=== PATIENT | female | born 1945 | race Caucasian/White ===

== ENCOUNTER 2016-09-09 20:08 | Inpatient (IN) ==
[2016-09-09] MEDS ORDERED: Ipratropium/Albuterol Neb 3 ML IH ONE ×2 (20:24→21:20)
[2016-09-09] MEDS ORDERED: methylPREDNISolone 125 MG/2 ML VIAL IVP ONE (20:24)
--- NOTE | 2016-09-09 20:28 | Emergency Department Note ---
Disposition Clinical Impression: Acute exacerbation of chronic obstructive airways disease, Community acquired pneumonia Disposition: Admitted As Inpatient Condition: Fair Referrals: NO,PCP [Non-Partnered Physician] - Forms: ED Satisfaction Letter Time of Disposition: 22:45 SOB HPI - General Chief Complaint: ED Shortness of Breath/Dyspnea Stated Complaint: sinus problems [facility] sent here for low o2 Time Seen by Provider: 09/09/16 20:17 Source: patient Limitations: no limitations Nursing Notes Reviewed: Yes Vital Signs Reviewed: Yes - History of Present Illness 71-year-old female presents emergency room for shortness of breath. Patient went to the [facility] for sinus congestion and postnasal drainage and a cough. They sent her to the ER for low oxygen saturation. She is complaining of shortness of breath and a cough as well as the above sinus symptoms for 4 days. Worse today. She does not wear home oxygen. She does have a history of COPD. She has not smoked any cigarettes in years. She denies any pain. Specifically she denies chest pain. They told her at [facility] that she had a fever. She does not have a fever here in triage. She denies any other complaints. Again she does not wear home oxygen but she does use and occasional albuterol inhaler. She does not have a nebulizer machine. Pt Subjective Complaint: shortness of breath, cough Onset (ago): day(s) Context: recent illness Severity: moderate Consistency/Duration: constant Improves with: nothing Worsens with: movement, coughing Known history of: COPD Associated symptoms: Reports: fever, cough, sputum production, other (Sinus congestion and rhinorrhea and postnasal drainage). Denies: chest pain Treatment prior to arrival: none Cough present: Yes Cough Description: Voluntary Cough Frequency: Intermittent Sputum production: No - Related Data Home Medications Medication Instructions Recorded Confirmed Albuterol Sulfate [Albuterol 2 puff IH Q4H PRN 09/09/16 09/09/16 Inhaler] Cholecalciferol (D-3) [Vitamin D] 2,000 unit PO DAILY 09/09/16 09/09/16 Colesevelam [Welchol] 1,875 mg PO BID 09/09/16 09/09/16 Fluticasone/Salmeterol [Advair Hfa 2 puff IH BID 09/09/16 09/09/16 230-21 Mcg Inhaler] Glimepiride [Amaryl] 4 mg PO BID 09/09/16 09/09/16 Lisinopril [Zestril] 20 mg PO DAILY 09/09/16 09/09/16 Metformin HCl [Glucophage] 1,000 mg PO BID 09/09/16 09/09/16 Nicotine Patch [Nicoderm] 21 mg TD DAILY 09/09/16 09/09/16 Allergies Allergy/AdvReac Type Severity Reaction Status Date / Time No Known Allergies Allergy Verified 11/17/15 10:14 All systems ED: reviewed and negative except as stated. Constitutional: Reports: fever, chills, weakness Eyes: Reports: as per HPI ENT ED: Reports: as per HPI Cardiovascular: Reports: as per HPI. Denies: chest pain Respiratory: Reports: cough, dyspnea, wheezes Gastrointestinal: Reports: as per HPI Genitourinary: Reports: as per HPI Musculoskeletal: Reports: as per HPI Integumentary: Reports: as per HPI Neurological: Reports: as per HPI Psychiatric: Reports: as per HPI Endocrine: Reports: as per HPI Past Medical History - Past Medical History Medical history: Reports: arthritis, COPD, diabetes, hyperlipidemia Surgical history: Reports: cholecystectomy, hysterectomy, orthopedic, other - Social History Smoking Status: Former smoker Alcohol use: Reports: none Drug use: Reports: none Physical Exam - General Limitations: no limitations General appearance: alert, in no apparent distress - Head Head exam: atraumatic, normocephalic - Eye Eye exam: Present: normal appearance - ENT ENT exam: normal exam, normal oropharynx - Neck Neck exam: Present: normal inspection - Respiratory Respiratory exam: Present: wheezes (Bilateral wheezes. Decreased air exchange in the bases.) - Cardiovascular Cardiovascular exam: Present: tachycardia - Abdominal Exam Abdominal exam: Present: soft, Non-Tender - Expanded Lower Extremity Exam Hip/Pelvis exam: Present: normal inspection Neurovascular/Tendon exam: Present: normal capillary refill - Back Exam Back exam: Present: normal inspection - Neurological Exam Neurological exam: Present: alert, oriented X3 - Psychiatric Psychiatric exam: Present: normal affect, normal mood - Skin Skin exam: Present: warm, dry, intact Course Vital Signs Temperature 98.2 F 09/09/16 20:11 Pulse Rate 115 09/09/16 20:11 Respiratory Rate 20 09/09/16 20:11 Blood Pressure 145/74 09/09/16 20:11 O2 Sat by Pulse Oximetry 75 L 09/09/16 20:11 Temperature 98.2 F 09/09/16 20:11 Pulse Rate 99 09/09/16 22:04 Respiratory Rate 20 09/09/16 22:04 Blood Pressure 125/49 09/09/16 22:04 O2 Sat by Pulse Oximetry 95 09/09/16 22:04 Oxygen Delivery Oxygen Delivery Nasal Cannula Shortness of Breath/Dyspnea - [facility] Narrative Medical decision making narrative: Concerns on the chest x-ray for some bibasilar infiltrates. The radiologist read this as a normal test. I added on a CT of the chest which showed some bilateral pneumonia appearance. No significant infiltrate however is seen. Her labs are unremarkable. Her troponin was negative. Spoke with the hospitalist will admit the patient. She is requiring oxygen which she does not wear any home. She is having a lot of coughing secondary to the breathing treatments. She was given Solu-Medrol 125 mg upon arrival to the ER. She is stable otherwise at this time. - Medical Records Medical records reviewed: Yes I reviewed the patient's medical records. - Lab Data Lab results reviewed: Yes I reviewed the patient's lab results. Result diagrams: 09/09/16 20:27 09/09/16 20:27 Lab Results 09/09/16 09/09/16 09/09/16 Range/Units 20:27 20:27 20:27 WBC 10.1 (4.3-11.1) K/mcL RBC 4.49 (3.82-4.97) M/mcL Hgb 13.4 (11.5-15.4) g/dL Hct 41.2 (35.3-44.9) % MCV 91.8 (83.0-100.0) fL MCH 29.8 (28.0-33.3) pg MCHC 32.5 (31.6-35.5) g/dL RDW 13.2 (11.5-14.5) % Plt Count 221 (140-400) K/mcL MPV 8.9 L (9.4-12.4) fL Immature Gran % 0.3 (0-4) % Seg Neutrophils % 79.8 % Lymphocytes % 9.9 % Monocytes % 9.8 % Eosinophils % 0.0 % Basophils % 0.2 % Neutrophils # 8.1 (1.6-8.9) K/mcL Lymphocytes # 1.0 (0.6-4.6) K/mcL Monocytes # 1.0 (0.0-1.3) K/mcL Eosinophils # 0.0 (0.0-0.6) K/mcL Basophils # 0.0 (0.0-0.2) K/mcL Sodium 138 (136-145) mEq/L Potassium 3.8 (3.5-4.5) mEq/L Chloride 100 (98-109) mEq/L Carbon Dioxide 23 (19-29) mEq/L BUN 16 (7-20) mg/dL Creatinine 0.87 (0.57-1.11) mg/dL Est GFR ( Amer) > 60 (> 60) Est GFR (Non-Af Amer) > 60 (> 60) BUN/Creatinine Ratio 18 (6-26) Glucose 141 H (70-99) mg/dL Calculated Osmolality 290 (280-300) Calcium 9.1 (8.6-10.8) mg/dL Troponin I 0.02 (0-0.03) ng/mL - Radiology Data Radiology results reviewed: Yes I reviewed the patient's radiology results. - EKG Data EKG attestation: Yes I reviewed and interpreted this EKG. EKG shows normal: Reports: sinus rhythm Rate: Reports: tachycardia Rhythm: Reports: NSR [place]/QRS: Reports: normal
[2016-09-09 20:39] LABS: Basophils % 0.2 %; Hematocrit 41.2 % (35.3-44.9); Hemoglobin 13.4 g/dL (11.5-15.4); Immature Granulocytes % 0.3 % (0-4); Lymphocytes % 9.9 %; Mean Corpuscular HGB Conc 32.5 g/dL (31.6-35.5); Mean Corpuscular Hemoglobin 29.8 pg (28.0-33.3); Mean Corpuscular Volume 91.8 fL (83.0-100.0); Mean Platelet Volume 8.9 fL (9.4-12.4); Monocytes % 9.8 %; Neutrophils # 8.1 K/mcL (1.6-8.9); Platelet Count 221 K/mcL (140-400); Red Blood Count 4.49 M/mcL (3.82-4.97); Red Cell Distribution Width 13.2 % (11.5-14.5); Segmented Neutrophils % 79.8 %
[2016-09-09 20:52] LABS: BUN/Creatinine Ratio 18 (6-26); Blood Urea Nitrogen 16 mg/dL (7-20); Calcium 9.1 mg/dL (8.6-10.8); Carbon Dioxide 23 mEq/L (19-29); Chloride 100 mEq/L (98-109); Glucose 141 mg/dL (70-99); Osmolality,Calculated 290 (280-300); Potassium 3.8 mEq/L (3.5-4.5); Sodium 138 mEq/L (136-145); eGFR For African Americans > 60 (> 60); eGFR For Non-African Americans > 60 (> 60)
[2016-09-09] MEDS ORDERED: HYDROcodone BIT/Homatropine LQ 5 MG/5 ML UDC PO PRN (21:20)
[2016-09-09] MEDS ORDERED: Azithromycin 500 MG in D5% in Water 250 ML IVPB ONE (22:43)
[2016-09-10] MEDS ORDERED: *HR* Morphine 2 MG/ML SYRINGE IVP PRN (00:08)
[2016-09-10] MEDS ORDERED: Dextrose Gel 15 GM PO PRN ×2 (00:08)
[2016-09-10] MEDS ORDERED: Acetaminophen 325 MG TABLET PO PRN (00:08)
[2016-09-10] MEDS ORDERED: *HR* OxyCODONE Immed Rel 5 MG TABLET PO PRN ×3 (00:08→16:01)
[2016-09-10] MEDS ORDERED: *HR* Dextrose 50 % in Water (Syg) 50 ML SYRINGE IVP PRN (00:08)
[2016-09-10] MEDS ORDERED: Pantoprazole 40 MG VIAL IVP STA (00:08)
[2016-09-10] MEDS ORDERED: Albuterol 2.5 MG/3 ML NEBULIZER IH PRN (00:08)
[2016-09-10] MEDS ORDERED: D5% in Water 1,000 ML IV PRN (00:08)
[2016-09-10] MEDS ORDERED: *HR* Promethazine 25 MG/ML VIAL IVP PRN (00:08)
[2016-09-10] MEDS ORDERED: Naloxone 0.4 MG/ML INJ IVP PRN (00:08)
--- NOTE | 2016-09-10 00:25 | Internal Med History&Physical ---
Date of Encounter: 09/10/16 Time of Encounter: 01:00 Assessment and Plan (1) Acute respiratory failure with hypoxia Current visit: Yes Status: Acute . (2) Type 2 diabetes mellitus Current visit: Yes Status: Chronic . Qualifiers: Diabetes mellitus complication status: with unspecified complications Diabetes mellitus nursing home insulin use: unspecified terminal makeup operator insulin use status Qualified Code(s): E11.8 - Type 2 diabetes mellitus with unspecified complications (3) COPD (chronic obstructive pulmonary disease) Current visit: Yes Status: Chronic . Qualifiers: COPD type: unspecified COPD Qualified Code(s): J44.9 - Chronic obstructive pulmonary disease, unspecified (4) Former heavy cigarette smoker (20-39 per day) Current visit: Yes Status: Chronic . (5) Acute exacerbation of chronic obstructive airways disease Current visit: Yes Status: Acute . (6) Community acquired pneumonia Current visit: Yes Status: Acute . (7) Sinusitis Current visit: Yes Status: Acute . Qualifiers: Sinusitis location: unspecified location Chronicity: unspecified Qualified Code(s): J32.9 - Chronic sinusitis, unspecified (8) SIRS due to infectious process with organ dysfunction Current visit: Yes Status: Acute . Internal Medicine - H&P: HPI Chief complaint: Difficulty breathing Admitted From: Emergency Dept Plans for Post Hospital Care: Home History of present illness: Ms. Faustin is a 71 year old female medical history significant for COPD/ interstitial lung disease, osteoarthritis, osteopenia, type 2 diabetes mellitus , hypertension, dyslipidemia, GERD, colonic polyps/angiodysplasia with assoc GI bleed, former smoker. The patient was visited and interviewed and examined. The patient is admitted to [facility] via the emergency department when she presented with complaints of acute shortness of breath. She recently went to the [facility] urgent care clinic. She was concerned about persistent sinus congestion with postnasal drainage and recurrent cough. Examination found her to be acutely hypoxic with O2 saturations found to be in the 70-80% range. She was promptly forwarded to the emergency department for more comprehensive evaluation. The patient was aware of a prior history for COPD. She had been prescribed a prn rescue metered-dose inhaler. A combined, maintanence inhaled steroid and bronchodilator. She recalls performing a pulmonary function test but the results of which she is unaware of. She was never directed to complete a sleep study about sleep apnea. Does not have an home oxygen therapy. She former heavy smoker she has not smoked in several years. For sending complaints and she acknowledges that they had been progressive over 4 to 7days. Symptoms were worse on the day of her presentation to the clinic. She shortness of breath to be moderate to severe with audible wheezing and dyspnea at rest but increased with activity. Nothing seemed to improve symptoms even her metered-dose inhalers when most severe. It would be aggravated with minimal activity and during coughing. She acknowledged a feeling of feverishness and some chills and generalized weakness and malaise and sputum production scant and mucoid. Denies any hemoptysis epistaxis. Feeling of sinus pressure and congestion is persistent with a feeling of postnasal drainage triggering cough and rhinorrhea. She denies any chest pain headache and syncopal presyncopal complaints as he vomiting abdominal pain. Cannot quantify any specific sick contacts. Denies any travel. Denies any significant environmental exposures of late beyond changes in local winter climate. Findings in the ED: temperature 98.2 pulse 99-115 respirations 18-20 BP 125-145/49-74 and O2 saturation by pulse oximetry 75-95% at 2-3 L per nasal cannula. WBC 10.1 hemoglobin 13.4 platelets 221,000. Differential normal. Metabolic panel normal. BUN 16 creatinine 0.87. Glucose 141 osmolality 290. Troponin 0.02. EKG normal sinus rhythm. Tachycardia. No acute ischemic changes. Portable chest x-ray demonstrated no acute or active cardiopulmonary process. Preliminary impression suggest acute exacerbation of mixed COPD disease bronchitis-bronchiolitis) against a background of chronic interstitial lung disease. Resting hypoxemia has been experiencing in her past although home oxygen therapy has not been established for her. Agree with hypoxemia was significant of oxygen but proved responsive to supplemental oxygen therapy. Screening laboratory studies meet systemic inflammatory response syndrome criteria. Investigations will be pursued as part of rule out for sepsis secondary to infectious cause. Most likely source sinobronchial. She declares that she is no longer actively smoking but this cannot be validated at this time. Given presenting findings she is at risk for further acute clinical decline and morbidity the setting of her defined comorbid conditions. Workup and reatments will proceed comprehensively. Cumulative laboratory and radiographic data base was reviewed, considered and discussed. Pertinent ancillary medical records including ECW and PCI documentation, when available, was reviewed and considered. Given the patient's presenting concerns, past medical history, clinical findings and symptoms, she is admitted at this time will undergo further evaluation and disposition. Orders were written as per the computerized physician border guard system.......................................................................... .................... Consultative opinions will be sought as clinical circumstances justify. Pain management needs will be addressed. Laboratory and radiographic data base will be updated as appropriate. Studies include: Cultures of blood urine and sputum, cardiac injury panel, BNP, metabolic and hematologic panel, magnesium, phosphorus, ionized calcium, thyroid panel, lipid profile, A1c, C-peptide, CRP, sedimentation rate, respiratory infection profile, respiratory virus panel, Legionella and streptococcal pneumoniae urine antigen, blood gas, lactic acid, UA, UDS, serologies, etc. Precautions: Aspiration, fall, delirium protocol/surveillance initiated. Telemetry with continuous hemodynamic monitoring and pulse oximetry initiated. Empiric antibiotic coverage: Intravenous Rocephin and azithromycin pending culture data. Special studies: CT chest, CT sinuses, chest x-ray, telemetry, EKG. Pulmonary toilet: Incentive spirometry, aerosol bronchodilator, mucolytic, antitussive, supplemental oxygen. Corticosteroid therapy. CPAP/BiPAP supplemental oxygen delivery. Aerosol Mucomyst therapy. Fluid and electrolyte repletion efforts will proceed. Careful attention to fluid balance and renal recovery will be emphasized. Avoidance of nephrotoxic exposure and adverse drug drug interaction in the setting of impaired renal function will be monitored closely. Acute coronary syndrome protocol/surveillance initiated. DVT and PUD prophylaxis initiated: PPI therapy, intermittent pneumatic cuffs/ TEDs. SQ heparin/Lovenox. Early ambulation will be encouraged. Immunization updates recommended. Influenza and pneumococcal vaccinations as part of ongoing preventative healthcare recommendations strongly recommended. Smoking cessation counseling briefly addressed. Patient is a former smoker. A nicotine substitute will be provided on an as requested basis. Advanced care directive discussion briefly addressed. Patient does not declare any healthcare restrictions at this time. Cardiovascular risk appraisal and cardiovascular risk reduction efforts will be emphasized. Physical and occupational therapy may be consulted to assess patient's functional capacity and progress mobility if her circumstances permit. She would likely benefit by enrollment in a cardiopulmonary rehabilitation program. Sliding scale insulin coverage, ADA dietary restraint and schedule an as-needed basis fingerstick glucose assessments were initiated. Nutrition/diabetes education counseling may be considered if circumstances justify. Outpatient medication schedules will be reviewed, confirmed and facilitated as appropriate. Reconciliation of home treatments including adjustments, substitutions and reintroduction into the treatment regimen will address necessary maintenance therapies for chronic pre-existing medical conditions. Plan of care has been reviewed and discussed in detail with the patient. Questions addressed. Hospital course will depend upon collective clinical findings, treatment response and potential consultative interventions. Patient is at risk for further acute clinical decline and morbidity due to her presenting chief complaints, clinical findings and comorbidities. Condition is serious. Prognosis is guarded. CODE STATUS is reported as full. Past Med Surg Social Fam HX - Past Medical History Source: old records reviewed Medical history: arthritis, COPD (Granulomatous lung disease.), diabetes, GERD, GI bleed (Colonic angiodysplasia.), hyperlipidemia, hypertension, osteoporosis ( Vitamin D deficiency.), other (Allergic rhinitis. Chronic sinusitis.) Psychiatric history: no psych history, other - Past Surgical History Surgical History: cholecystectomy, hysterectomy, orthopedic, other, other - Social History Smoking Status: Former smoker Smokeless Tobacco Status: No Alcohol use: none Drug use: none Occupational status: retired Current living situation: With Family Activity Level: Mostly sedentary Recent Out of Country Travel Within the Last 8 Weeks: No Exposure or Possible Exposure to Illness During Travel: No - Family History Mother Name: Brice Arnold Family Member Ethnicity: Non- Living Status: Age at : 73 Cause of : copd Hx Family Cardiac Disorders: No Hx Family Respiratory Disorders: Yes Hx Family Cancer: No Hx Family GI Disorders: No Hx Family Genitourinary Disorders: No Hx Family Endocrine Disorder: Yes (borderline) Hx Family Musculoskeletal Disorders: No Hx Family Neuromuscular Disorders: No Hx Family Neurologic Disorders: No Hx Family HEENT Disorders: No Hx Family Autoimmune Disorders: No Hx Family Reproductive Disorders: No Hx Family Psychosocial Disorders: No Hx Family Medical Disorders: No Internal Medicine - H&P: Meds Albuterol Sulfate [Albuterol Inhaler] 2 puff IH Q4H PRN 09/09/16 [History] Cholecalciferol (D-3) [Vitamin D] 2,000 unit PO DAILY 09/09/16 [History] Colesevelam [Welchol] 1,875 mg PO BID 09/09/16 [History] Fluticasone/Salmeterol [Advair Hfa 230-21 Mcg Inhaler] 2 puff IH BID 09/09/16 [ History] Glimepiride [Amaryl] 4 mg PO BID 09/09/16 [History] Lisinopril [Zestril] 20 mg PO DAILY 09/09/16 [History] Metformin HCl [Glucophage] 1,000 mg PO BID 09/09/16 [History] Nicotine Patch [Nicoderm] 21 mg TD DAILY 09/09/16 [History] Allergies No Known Allergies Allergy (Verified 11/17/15 10:14) All Systems PM: A 10-system review of systems was performed and is negative for pertinent findings except as documented above in the HPI. - Constitutional Constitutional: as per HPI, no chills, no fever(s), no night sweats - EENT Eyes: as per HPI, no change in vision, no discharge, no pain, no photophobia Ears: as per HPI, no ear discharge, no ear pain, no tinnitus Nose, mouth and throat: as per HPI, nasal congestion, post-nasal drip, sinus pressure, other, no dysphagia, no nasal discharge, no neck pain, no sore throat - Cardiovascular Cardiovascular ROS IM: as per HPI, no chest pain, no diaphoresis, no dyspnea, no lightheadedness, no palpitations, no syncope - Respiratory Respiratory: as per HPI, cough, dyspnea, wheezing, chest congestion, other, no hemoptysis, no dyspnea on exertion, no excessive phlegm production - Gastrointestinal Gastrointestinal: as per HPI, no abdominal pain, no diarrhea, no hematemesis, no hematochezia, no melena, no nausea, no vomiting - Genitourinary Genitourinary: as per HPI, no change in urinary stream, no dysuria, no flank pain, no hematuria - Musculoskeletal Musculoskeletal ROS IM: as per HPI, no numbness, no tingling - Integumentary Integumentary IM: as per HPI, no rash, no unusual bruising - Neurological Neurological ROS: as per HPI, no confusion, no convulsions, no focal weakness, no numbness, no tingling, no tremor(s) - Psychiatric Psychiatric: as per HPI - Endocrine Endocrine IM: as per HPI - Hematologic/Lymphatic Hematologic/Lymphatic: as per HPI, no easy bruising - Allergic/Immunologic Allergic/Immunologic: as per HPI - Constitutional Vitals: Temp Pulse Resp BP Pulse Ox 99.0 F 20 97 130/59 88 L 09/10/16 00:07 09/10/16 00:07 09/10/16 00:07 09/10/16 00:07 09/10/16 00:07 General appearance: Present: cooperative, mild distress, A&O X 3, answers questions appropriately - Head Head exam: Present: atraumatic, normocephalic - Eye Eye exam: Present: EOMI, PERRL, conjuntiva pink, sclera anicteric Pupils: Present: normal accommodation, PERRL - ENT ENT exam: Present: mucous membranes moist, normal external ear exam, normal oropharynx - Neck Neck exam general surgery: Present: full ROM, supple, trachea midline. Absent: lymphadenopathy - Respiratory Respiratory exam: Present: chest wall tenderness, decreased breath sounds, prolonged expiratory phase, rhonchi, wheezes. Absent: accessory muscle use, rales, stridor, tachypnea - Cardiovascular Cardiovascular exam: Present: distant heart sounds, RRR, +S1, +S2. Absent: diastolic murmur, gallop, rubs, systolic murmur - GI/Abdominal GI/Abdominal exam: Present: normal bowel sounds, soft, no peritoneal signs. Absent: distended, tenderness - Extremities Exam Extremities exam: Present: full ROM, warm, radial pulses palpable and symetrical. Absent: calf tenderness, cyanotic, pedal edema - Neurological Exam Neurological exam: Present: alert, CN II-XII intact, oriented X3, no focal deficits. Absent: pronater drift, facial droop, speech deficit - Psychiatric Psychiatric exam: Present: normal affect, normal mood - Skin Skin exam: Present: cyanosis, dry, intact, warm. Absent: petechiae, rash, urticaria, vesicles Internal Med - H&P Results - Labs CBC & Chem 7: 09/09/16 20:27 09/10/16 01:15 - Impressions Vital Signs Temp Pulse Resp BP Pulse Ox 09/10/16 00:07 99.0 F 20 97 130/59 88 L 09/09/16 23:20 20 115/59 09/09/16 22:04 99 20 125/49 95 09/09/16 21:55 107 22 128/48 94 L 09/09/16 21:33 18 95 09/09/16 21:07 96 09/09/16 21:06 109 22 126/53 100 09/09/16 20:46 104 21 152/56 91 L 09/09/16 20:40 18 94 L 09/09/16 20:24 93 L 09/09/16 20:11 98.2 F 115 20 145/74 75 L Intake and Output 09/09/16 09/09/16 09/10/16 15:59 23:59 07:59 Intake Total 0 / 0 Balance 0 / 0 Intake: Oral 0 / 0 Other: # Voids 0 Weight 68.039 kg 71.4 kg Patient Weight 09/10/16 23:59 Weight 71.4 kg Short CBC 09/09/16 Range/Units 20:27 WBC 10.1 (4.3-11.1) K/mcL Hgb 13.4 (11.5-15.4) g/dL Hct 41.2 (35.3-44.9) % Plt Count 221 (140-400) K/mcL Neutrophils # 8.1 (1.6-8.9) K/mcL BMP 09/09/16 Range/Units 20:27 Sodium 138 (136-145) mEq/L Potassium 3.8 (3.5-4.5) mEq/L Chloride 100 (98-109) mEq/L Carbon Dioxide 23 (19-29) mEq/L BUN 16 (7-20) mg/dL Creatinine 0.87 (0.57-1.11) mg/dL Glucose 141 H (70-99) mg/dL Calcium 9.1 (8.6-10.8) mg/dL Cardiac Enzymes 09/09/16 Range/Units 20:27 Troponin I 0.02 (0-0.03) ng/mL Abnormal lab results MPV 8.9 fL (9.4-12.4) L 09/09/16 20:27 Glucose 141 mg/dL (70-99) H 09/09/16 20:27 Allergies Allergy/AdvReac Type Severity Reaction Status Date / Time No Known Allergies Allergy Verified 11/17/15 10:14 Laboratory Results WBC 10.1 K/mcL (4.3-11.1) 09/09/16 20: RBC 4.49 M/mcL (3.82-4.97) 09/09/16 20: Hgb 13.4 g/dL (11.5-15.4) 09/09/16 20: Hct 41.2 % (35.3-44.9) 09/09/16: MCV 91.8 fL (83.0-100.0) 09/09/16: MCH 29.8 pg (28.0-33.3) 09/09/16: MCHC 32.5 g/dL (31.6-35.5) 09/09/16: RDW 13.2 % (11.5-14.5) 09/09/16: Plt Count 221 K/mcL (140-400) 09/09/16: MPV 8.9 fL (9.4-12.4) L 09/09/16: Immature Gran % 0.3 % (0-4) 09/09/16: Seg Neutrophils % 79.8 % 09/09/16: Lymphocytes % 9.9 % 09/09/16: Monocytes % 9.8 % 09/09/16: Eosinophils % 0.0 % 09/09/16 Basophils % 0.2 % 09/09/16: Neutrophils # 8.1 K/mcL (1.6-8.9) 09/09/16: Lymphocytes # 1.0 K/mcL (0.6-4.6) 09/09/16: Monocytes # 1.0 K/mcL (0.0-1.3) 09/09/16: Eosinophils # 0.0 K/mcL (0.0-0.6) 09/09/16 Basophils # 0.0 K/mcL (0.0-0.2) 09/09/16 20: Sodium 138 mEq/L (136-145) 09/09/16 20: Potassium 3.8 mEq/L (3.5-4.5) 09/09/16: Chloride 100 mEq/L (98-109) 09/09/16 20:27 Carbon Dioxide 23 mEq/L (19-29) 09/09/16 20:27 BUN 16 mg/dL (7-20) 09/09/16 20:27 Creatinine 0.87 mg/dL (0.57-1.11) 09/09/16 20:27 Est GFR ( Amer) > 60 (> 60) 09/09/16 20:27 Est GFR (Non-Af Amer) > 60 (> 60) 09/09/16 20:27 BUN/Creatinine Ratio 18 (6-26) 09/09/16 20:27 Glucose 141 mg/dL (70-99) H 09/09/16 20:27 Calculated Osmolality 290 (280-300) 09/09/16 20:27 Calcium 9.1 mg/dL (8.6-10.8) 09/09/16 20:27 Troponin I 0.02 ng/mL (0-0.03) 09/09/16 20:27 Impressions Chest X-Ray 09/09/16 20:24 IMPRESSION: 1. No acute cardiopulmonary disease. D/ / Casa Waters MD / Casa Waters MD Interpreting Provider: Casa Waters MD Chest CT 09/09/16 20:54 IMPRESSION: 1. Pulmonary findings suggestive of mild infectious small airway inflammation and pneumonia. D/ / Casa Waters MD / Casa Waters MD Interpreting Provider: Casa Waters MD
[2016-09-10] MEDS: Azithromycin 500 MG in D5% in Water 250 ML IVPB SCH (00:42)
[2016-09-10 00:51] LABS: 2009 H1N1 PCR NOT DETECTED (Not Detect); Influenza A PCR Negative (Negative); Influenza B PCR Negative (Negative)
[2016-09-10] MEDS: 0.9 % Sodium Chloride 1,000 ML IVC SCH ×2 (01:22→16:05)
[2016-09-10] MEDS: Benzonatate 100 MG CAPSULE PO PRN (01:34)
[2016-09-10 02:00] LABS: INR 1.3; Prothrombin Time 13.8 Seconds (9.4-12.1)
[2016-09-10 02:03] LABS: Activated Partial Thrombo Time 33.9 Seconds (26.0-36.0)
[2016-09-10 02:04] LABS: VBG HCO3 30.8 mEq/L (21-27); VBG PH 7.34 pH Units (7.32-7.42)
[2016-09-10 02:08] LABS: Magnesium 1.7 mg/dL (1.6-2.6); Phosphorous 4.3 mg/dL (2.3-4.7)
[2016-09-10 02:09] LABS: Hemoglobin A1C 6.6 %
[2016-09-10 02:17] LABS: Alanine Aminotransferase 15 Units/L (0-55); Albumin 3.1 g/dL (3.5-5.0); Alkaline Phosphatase 71 Units/L (38-126); Aspartate Amino Transferase 19 Units/L (5-34); BUN/Creatinine Ratio 18 (6-26); Bilirubin,Total 0.2 mg/dL (0.2-1.2); Blood Urea Nitrogen 15 mg/dL (7-20); Calcium 8.3 mg/dL (8.6-10.8); Carbon Dioxide 25 mEq/L (19-29); Chloride 96 mEq/L (98-109); Chol/HDL Ratio 3.2 (0-4.9); Cholesterol 98 mg/dL (< 200); Globulin 3.2 g/dL (2.4-3.5); Glucose 299 mg/dL (70-99); HDL Cholesterol 31 mg/dL (40-59); LDL Cholesterol,Calculated 57 mg/dL (0-99); Magnesium 1.6 mg/dL (1.6-2.6); Osmolality,Calculated 290 (280-300); Phosphorous 4.3 mg/dL (2.3-4.7); Potassium 3.9 mEq/L (3.5-4.5); Sodium 134 mEq/L (136-145); Total Protein 6.3 g/dL (6.0-8.3); Triglycerides 50 mg/dL (< 150); eGFR For African Americans > 60 (> 60); eGFR For Non-African Americans > 60 (> 60)
[2016-09-10 02:26] LABS: Ionized Calcium 1.03 mmol/L (1.15-1.35)
[2016-09-10 02:29] LABS: Thyroid Stimulating Hormone 0.327 mcIU/mL (0.350-4.840)
[2016-09-10] MEDS: Ipratropium/Albuterol Neb 3 ML IH SCH ×4 (03:51→22:45)
[2016-09-10] MEDS: *HR* Enoxaparin 40 MG/0.4 ML SYRINGE SQ SCH (06:36)
[2016-09-10 09:00] LABS: Adenovirus Not Detected (Not Detect); Bordetella Pertussis Not Detected (Not Detect); Chlamydophila pneumoniae Not Detected (Not Detect); Coronavirus 229E Not Detected (Not Detect); Coronavirus HKU1 Not Detected (Not Detect); Coronavirus NL63 Not Detected (Not Detect); Coronavirus OC43 Not Detected (Not Detect); Human Metapneumovirus ***DETECTED*** (Not Detect); Human Rhinovirus/Enterovirus Not Detected (Not Detect); Influenza A Subtype 2009 H1 Not Detected (Not Detect); Influenza A Untypeable Not Detected (Not Detect); Influenza B Not Detected (Not Detect); Mycoplasma pneumoniae Not Detected (Not Detect); Parainfluenza Virus 1 Not Detected (Not Detect); Parainfluenza Virus 2 Not Detected (Not Detect); Parainfluenza Virus 3 Not Detected (Not Detect); Parainfluenza Virus 4 Not Detected (Not Detect); Respiratory Syncytial Virus Not Detected (Not Detect)
[2016-09-10] MEDS ORDERED: Famotidine 20 MG TABLET PO SCH (09:00)
[2016-09-10] MEDS: Insulin LISPRO 300 UNITS/3 ML VIAL SQ SCH ×4 (09:55→21:42)
[2016-09-10] MEDS: Lisinopril 20 MG TABLET PO SCH (09:56)
[2016-09-10] MEDS: predniSONE 20 MG TABLET PO SCH (09:56)
[2016-09-10] MEDS: Nicotine 21 MG PATCH.TD24 TD SCH (09:57)
--- NOTE | 2016-09-10 10:21 | Internal Med Progress Note ---
<Mau Montano - Last Filed: 09/10/16 17:57> Date of Encounter: 09/10/16 Time of Encounter: 09:45 - Assessment and plan (1) Community acquired pneumonia Current Visit: Yes Status: Acute (2) Sinusitis Current Visit: Yes Status: Acute Qualifiers: Sinusitis location: unspecified location Chronicity: unspecified Qualified Code(s): J32.9 - Chronic sinusitis, unspecified (3) COPD (chronic obstructive pulmonary disease) Current Visit: Yes Status: Chronic Qualifiers: COPD type: unspecified COPD Qualified Code(s): J44.9 - Chronic obstructive pulmonary disease, unspecified (4) Type 2 diabetes mellitus Current Visit: Yes Status: Chronic Qualifiers: Diabetes mellitus complication status: with unspecified complications Diabetes mellitus oil heaterman insulin use: unspecified oil heaterman insulin use status Qualified Code(s): E11.8 - Type 2 diabetes mellitus with unspecified complications - Subjective Interval history: 71 y/o F admitted for acute respiratory failure with hypoxia. Patient had persistent sinus congestion and postnasal drainage and recurrent cough and went to [facility] to get medicine. [facility] examination found her to have an oxygen saturation 70-80%. Admitted to fevers and chills and generalized weakness and malaise and sputum production. Denied any hemoptysis, epistaxis, recent travel. Former heavy smoker. Not on home oxygen. No recent hospitalizations 09/10/16 Patient feels like her condition is much improved. Still has some shortness of breath and productive cough. Denies any nausea, vomiting, fever, chills. Biggest complaint is her cough. Explained to patient that it is important that she keep coughing and not suppressed with medication. Unless, patient is unable to sleep because of the cough, then willing to prove medication. Patient does not feel cough is debilitating or causing her a headache. is resting comfortably in bed on Nasal canula with O2 stats of 93% on 3L - Constitutional Vitals: Temp Pulse Resp BP Pulse Ox 98.6 F 75 18 101/64 95 09/10/16 07:00 09/10/16 07:00 09/10/16 07:00 09/10/16 07:00 09/10/16 07:00 General appearance: Present: cooperative, mild distress, A&O X 3, answers questions appropriately - Head Head exam: Present: atraumatic, normocephalic - Eye Eye exam: Present: PERRL, conjuntiva pink, sclera anicteric Pupils: Present: PERRL - Neck Neck exam general surgery: Present: supple, trachea midline. Absent: lymphadenopathy - Respiratory Respiratory exam: Present: CTAB, rhonchi, wheezes. Absent: accessory muscle use , rales, respiratory distress - Cardiovascular Cardiovascular exam: Present: RRR, +S1, +S2. Absent: diastolic murmur, gallop, rubs, systolic murmur - GI/Abdominal GI/Abdominal exam: Present: normal bowel sounds, soft, no peritoneal signs. Absent: distended, tenderness - Extremities Exam Extremities exam: Present: warm, radial pulses palpable and symetrical. Absent : calf tenderness, cyanotic, pedal edema - Neurological Exam Neurological exam: Present: CN II-XII intact, oriented X3, no focal deficits. Absent: pronater drift, facial droop, speech deficit - Skin Skin exam: Present: dry, intact Internal Medicine: Result - Labs CBC & Chem 7: 09/09/16 20:27 09/10/16 01:15 - ABG Interpretation ABG results: PT/INR, D-dimer PT 13.8 Seconds (9.4-12.1) H 09/10/16 01:15 Consult Discharge Plan - Plan Referrals: Husam Barrientos MD [Primary Care Provider] - 09/16/16 1:00 pm <Vinny Gonzalez P - Last Filed: 09/10/16 18:29> Date of Encounter: 09/10/16 - Constitutional Vitals: Temp Pulse Resp BP Pulse Ox 98.2 F 73 18 118/62 95 09/10/16 10:50 09/10/16 15:00 09/10/16 15:59 09/10/16 15:00 09/10/16 17:00 Internal Medicine: Result - Labs CBC & Chem 7: 09/09/16 20:27 09/10/16 01:15 - ABG Interpretation ABG results: PT/INR, D-dimer PT 13.8 Seconds (9.4-12.1) H 09/10/16 01:15 - Attending Attestation this is event note I examined this patient and my medical decision-making was reviewed with the MANUAL TESTER/PA/Advanced Practice Nurse/Resident Physician. I agree with the documented findings, disposition and treatment plan as described except to the extent set forth below.
--- NOTE | 2016-09-10 14:58 | Electrocardiograph Report ---
[place] [id number] Test Date: 2016-09-09 Pat Name: Darrian Faustin Department: 104 Room: 2NE28 Gender: F Grocery Store Clerk: : 1945 Requested By: Ric Castillo Order Number: [id number] Reading MD: Marcelina Dave Measurements Intervals Waterman Rate: 102 P: 69 MA: 177 QRS: 38 QRSD: 108 T: 47 QT: 340 QTc: 399 Interpretive Statements SINUS TACHYCARDIA ABNORMAL RHYTHM ECG Electronically Signed On 09-10-2016 14:57:15 EST by Marcelina Dave
[2016-09-10] MEDS: Budesonide/Formoterol 80/4.5 MDI IH SCH (22:56)
[2016-09-11] MEDS: Benzonatate 100 MG CAPSULE PO PRN (00:06)
[2016-09-11] MEDS: Azithromycin 500 MG in D5% in Water 250 ML IVPB SCH (00:08)
[2016-09-11] MEDS: 0.9 % Sodium Chloride 1,000 ML IVC SCH ×2 (03:49→18:05)
[2016-09-11] MEDS: Ipratropium/Albuterol Neb 3 ML IH SCH ×4 (04:15→22:43)
[2016-09-11 04:33] LABS: ABG Base Excess 3.9 mEq/L (-2.0 to 3.0); ABG HCO3 30.8 mEQ/L (21-27); ABG Oxygen Saturation 93 % (95-98); ABG PCO2 57 mmHg (35-45); ABG PH 7.34 pH Units (7.32-7.45); ABG PO2 72 mmHg (85-104); ABG TCO2 32.5 mEq/L (20-26)
[2016-09-11 04:34] LABS: Blood Gas FiO2 32 %
[2016-09-11 06:15] LABS: Ionized Calcium 1.09 mmol/L (1.15-1.35)
[2016-09-11 06:22] LABS: Hematocrit 36.6 % (35.3-44.9); Mean Corpuscular HGB Conc 31.4 g/dL (31.6-35.5); Mean Corpuscular Hemoglobin 29.3 pg (28.0-33.3); Mean Corpuscular Volume 93.1 fL (83.0-100.0); Mean Platelet Volume 9.9 fL (9.4-12.4); Platelet Count 203 K/mcL (140-400); Red Blood Count 3.93 M/mcL (3.82-4.97); Red Cell Distribution Width 13.1 % (11.5-14.5)
[2016-09-11 06:23] LABS: Hemoglobin 11.5 g/dL (11.5-15.4)
[2016-09-11 06:25] LABS: BUN/Creatinine Ratio 19 (6-26); Blood Urea Nitrogen 13 mg/dL (7-20); Calcium 8.3 mg/dL (8.6-10.8); Carbon Dioxide 24 mEq/L (19-29); Chloride 104 mEq/L (98-109); Glucose 176 mg/dL (70-99); Osmolality,Calculated 292 (280-300); Potassium 3.6 mEq/L (3.5-4.5); Sodium 139 mEq/L (136-145); eGFR For African Americans > 60 (> 60); eGFR For Non-African Americans > 60 (> 60)
[2016-09-11] MEDS: *HR* Enoxaparin 40 MG/0.4 ML SYRINGE SQ SCH (06:28)
[2016-09-11 07:30] LABS: Lymphocytes # 1.3 K/mcL (0.6-4.6); Monocytes # 0.4 K/mcL (0.0-1.3); Neutrophils # 7.2 K/mcL (1.6-8.9); Reactive Lymphocytes Present (Not Present)
[2016-09-11 07:34] LABS: Large Platelets Present (Not Present); Platelet Estimate Normal (Normal)
[2016-09-11 07:36] LABS: Polychromasia 1+ (Not Present)
[2016-09-11] MEDS: Insulin LISPRO 300 UNITS/3 ML VIAL SQ SCH ×4 (11:13→21:41)
[2016-09-11] MEDS: Nicotine 21 MG PATCH.TD24 TD SCH (11:13)
[2016-09-11] MEDS: predniSONE 20 MG TABLET PO SCH (11:14)
[2016-09-11] MEDS: Lisinopril 20 MG TABLET PO SCH (11:15)
[2016-09-11] MEDS: Budesonide/Formoterol 80/4.5 MDI IH SCH ×2 (11:26→22:43)
--- NOTE | 2016-09-11 16:52 | Internal Med Progress Note ---
Date of Encounter: 09/11/16 Time of Encounter: 16:50 - Assessment and plan (1) Community acquired pneumonia Current Visit: Yes Status: Acute Assessment and plan: likely viral PNA with superadded bacterial infection. day 3 antibiotics and getting better steroids : day 3 and will give only for 5 days eating well and walking around in the room. (2) Acute exacerbation of chronic obstructive airways disease Current Visit: Yes Status: Acute Assessment and plan: has mild COPD exacerbation responding well to treatment will continue same. exacerbation is likely secondary to underlying infection. (3) Sinusitis Current Visit: Yes Status: Acute Assessment and plan: getting better Qualifiers: Sinusitis location: unspecified location Chronicity: unspecified Qualified Code(s): J32.9 - Chronic sinusitis, unspecified - Subjective Interval history: seen and examined. patient claims that she is feeling much better as compare to yesterday still occasionally coughing - Constitutional Vitals: Temp Pulse Resp BP Pulse Ox 79.8 F L 84 16 124/56 95 09/11/16 16:31 09/11/16 16:31 09/11/16 16:31 09/11/16 16:31 09/11/16 16:31 General appearance: Present: cooperative, mild distress, A&O X 3, answers questions appropriately - Head Head exam: Present: atraumatic, normocephalic - Eye Eye exam: Present: PERRL, conjuntiva pink, sclera anicteric Pupils: Present: PERRL - Neck Neck exam general surgery: Present: supple, trachea midline. Absent: lymphadenopathy - Respiratory Respiratory exam: Present: CTAB. Absent: accessory muscle use, rales, rhonchi, wheezes - Cardiovascular Cardiovascular exam: Present: RRR, +S1, +S2. Absent: diastolic murmur, gallop, rubs, systolic murmur - GI/Abdominal GI/Abdominal exam: Present: normal bowel sounds, soft, no peritoneal signs. Absent: distended, tenderness - Extremities Exam Extremities exam: Present: warm, radial pulses palpable and symetrical. Absent : calf tenderness, cyanotic, pedal edema - Neurological Exam Neurological exam: Present: CN II-XII intact, oriented X3, no focal deficits. Absent: pronater drift, facial droop, speech deficit - Skin Skin exam: Present: dry, intact Internal Medicine: Result - Labs CBC & Chem 7: 09/11/16 05:46 09/11/16 05:46 Labs: Short CBC 09/11/16 Range/Units 05:46 WBC 9.0 (4.3-11.1) K/mcL Hgb 11.5 D (11.5-15.4) g/dL Hct 36.6 (35.3-44.9) % Plt Count 203 (140-400) K/mcL Neutrophils # 7.2 (1.6-8.9) K/mcL BMP 09/11/16 05:46 Sodium 139 Potassium 3.6 Chloride 104 Carbon Dioxide 24 BUN 13 Creatinine 0.70 Glucose 176 H Calcium 8.3 L - ABG Interpretation ABG results: ABG ABG pH 7.34 pH Units (7.32-7.45) 09/11/16 04:24 ABG pCO2 57 mmHg (35-45) H 09/11/16 04:24 ABG pO2 72 mmHg (85-104) L 09/11/16 04:24 ABG O2 Saturation 93 % (95-98) L 09/11/16 04:24 PT/INR, D-dimer PT 13.8 Seconds (9.4-12.1) H 09/10/16 01:15 Consult Discharge Plan - Plan Referrals: Husam Barrientos MD [Primary Care Provider] - 09/16/16 1:00 pm
[2016-09-12] MEDS: Benzonatate 100 MG CAPSULE PO PRN (00:26)
[2016-09-12] MEDS: Azithromycin 500 MG in D5% in Water 250 ML IVPB SCH (01:52)
[2016-09-12] MEDS ORDERED: Melatonin 3 MG TABLET PO PRN (02:01)
[2016-09-12] MEDS: Ipratropium/Albuterol Neb 3 ML IH SCH ×4 (03:55→21:44)
[2016-09-12 05:45] LABS: Basophils % 0.3 %; Hematocrit 36.3 % (35.3-44.9); Hemoglobin 11.2 g/dL (11.5-15.4); Immature Granulocytes % 0.3 % (0-4); Lymphocytes # 1.2 K/mcL (0.6-4.6); Lymphocytes % 18.8 %; Mean Corpuscular HGB Conc 30.9 g/dL (31.6-35.5); Mean Corpuscular Hemoglobin 29.1 pg (28.0-33.3); Mean Corpuscular Volume 94.3 fL (83.0-100.0); Mean Platelet Volume 9.8 fL (9.4-12.4); Monocytes # 0.6 K/mcL (0.0-1.3); Monocytes % 8.5 %; Platelet Count 235 K/mcL (140-400); Red Blood Count 3.85 M/mcL (3.82-4.97); Red Cell Distribution Width 13.2 % (11.5-14.5); Segmented Neutrophils % 72.1 %
[2016-09-12 05:57] LABS: Neutrophils # 4.8 K/mcL (1.6-8.9)
[2016-09-12 06:04] LABS: BUN/Creatinine Ratio 11 (6-26); Blood Urea Nitrogen 7 mg/dL (7-20); Calcium 8.3 mg/dL (8.6-10.8); Carbon Dioxide 26 mEq/L (19-29); Chloride 106 mEq/L (98-109); Glucose 139 mg/dL (70-99); Osmolality,Calculated 290 (280-300); Potassium 3.6 mEq/L (3.5-4.5); Sodium 140 mEq/L (136-145); eGFR For African Americans > 60 (> 60); eGFR For Non-African Americans > 60 (> 60)
[2016-09-12] MEDS: *HR* Enoxaparin 40 MG/0.4 ML SYRINGE SQ SCH (06:28)
[2016-09-12 06:30] LABS: Platelet Estimate Normal (Normal); Reactive Lymphocytes Present (Not Present)
[2016-09-12] MEDS: Insulin LISPRO 300 UNITS/3 ML VIAL SQ SCH ×4 (09:39→21:19)
[2016-09-12] MEDS: Nicotine 21 MG PATCH.TD24 TD SCH (09:50)
[2016-09-12] MEDS: Lisinopril 20 MG TABLET PO SCH (09:54)
[2016-09-12] MEDS: predniSONE 20 MG TABLET PO SCH (09:54)
[2016-09-12] MEDS: Budesonide/Formoterol 80/4.5 MDI IH SCH ×2 (10:59→21:45)
[2016-09-12] MEDS: 0.9 % Sodium Chloride 1,000 ML IVC SCH (12:18)
[2016-09-12] MEDS ORDERED: *HR* LORazepam 0.5 MG TABLET PO ONE ×2 (16:06→21:00)
--- NOTE | 2016-09-12 17:53 | Internal Med Progress Note ---
Date of Encounter: 09/12/16 Time of Encounter: 17:47 - Assessment and plan (1) Community acquired pneumonia Current Visit: Yes Status: Acute Assessment and plan: likely viral PNA with superadded bacterial infection. day 3 antibiotics and getting better steroids : day 3 and will give only for 5 days eating well and walking around in the room. 09/12/2016 Day 4 antibiotics patient feels that she is improving but still has cough which bothers her. plan will continue Abx/Steroids/BDAs will get her codeine base cough syrup. night time anxiolytic to help in sleep. (2) Acute exacerbation of chronic obstructive airways disease Current Visit: Yes Status: Acute Assessment and plan: has mild COPD exacerbation responding well to treatment will continue same. exacerbation is likely secondary to underlying infection. (3) Sinusitis Current Visit: Yes Status: Acute Assessment and plan: getting better Qualifiers: Sinusitis location: unspecified location Chronicity: unspecified Qualified Code(s): J32.9 - Chronic sinusitis, unspecified - Subjective Interval history: seen and examined. patient claims that she is feeling much better as compare to yesterday still occasionally coughing 09/12/2016 seen and examined. still coughing and has occasional SOB CT report updated to patient. concern regarding sleep at night. - Constitutional Vitals: Temp Pulse Resp BP Pulse Ox 97.9 F 87 16 154/106 96 09/12/16 17:07 09/12/16 17:07 09/12/16 17:07 09/12/16 17:07 09/12/16 17:07 General appearance: Present: cooperative, mild distress, A&O X 3, answers questions appropriately - Head Head exam: Present: atraumatic, normocephalic - Eye Eye exam: Present: PERRL, conjuntiva pink, sclera anicteric Pupils: Present: PERRL - Neck Neck exam general surgery: Present: supple, trachea midline. Absent: lymphadenopathy - Respiratory Respiratory exam: Present: CTAB. Absent: accessory muscle use, rales, rhonchi, wheezes - Cardiovascular Cardiovascular exam: Present: RRR, +S1, +S2. Absent: diastolic murmur, gallop, rubs, systolic murmur - GI/Abdominal GI/Abdominal exam: Present: normal bowel sounds, soft, no peritoneal signs. Absent: distended, tenderness - Extremities Exam Extremities exam: Present: warm, radial pulses palpable and symetrical. Absent : calf tenderness, cyanotic, pedal edema - Neurological Exam Neurological exam: Present: CN II-XII intact, oriented X3, no focal deficits. Absent: pronater drift, facial droop, speech deficit - Skin Skin exam: Present: dry, intact Internal Medicine: Result - Labs CBC & Chem 7: 09/12/16 05:10 09/12/16 05:10 Labs: Short CBC 09/12/16 Range/Units 05:10 WBC 6.6 (4.3-11.1) K/mcL Hgb 11.2 L (11.5-15.4) g/dL Hct 36.3 (35.3-44.9) % Plt Count 235 (140-400) K/mcL Neutrophils # 4.8 (1.6-8.9) K/mcL BMP 09/12/16 05:10 Sodium 140 Potassium 3.6 Chloride 106 Carbon Dioxide 26 BUN 7 Creatinine 0.63 Glucose 139 H Calcium 8.3 L - ABG Interpretation ABG results: ABG ABG pH 7.34 pH Units (7.32-7.45) 09/11/16 04:24 ABG pCO2 57 mmHg (35-45) H 09/11/16 04:24 ABG pO2 72 mmHg (85-104) L 09/11/16 04:24 ABG O2 Saturation 93 % (95-98) L 09/11/16 04:24 PT/INR, D-dimer PT 13.8 Seconds (9.4-12.1) H 09/10/16 01:15 - VTE Documentation of Mechanical Device: Intermittent pneumatic compression device Consult Discharge Plan - Plan Referrals: Husam Barrientos MD [Primary Care Provider] - 09/16/16 1:00 pm
[2016-09-13] MEDS: Azithromycin 500 MG in D5% in Water 250 ML IVPB SCH (01:54)
[2016-09-13 04:46] LABS: Hematocrit 37.2 % (35.3-44.9); Hemoglobin 11.8 g/dL (11.5-15.4); Mean Corpuscular HGB Conc 31.7 g/dL (31.6-35.5); Mean Corpuscular Hemoglobin 29.6 pg (28.0-33.3); Mean Corpuscular Volume 93.2 fL (83.0-100.0); Mean Platelet Volume 9.5 fL (9.4-12.4); Platelet Count 274 K/mcL (140-400); Red Blood Count 3.99 M/mcL (3.82-4.97); Red Cell Distribution Width 12.8 % (11.5-14.5)
[2016-09-13] MEDS: Ipratropium/Albuterol Neb 3 ML IH SCH ×4 (04:59→23:36)
[2016-09-13 05:07] LABS: BUN/Creatinine Ratio 9 (6-26); Blood Urea Nitrogen 6 mg/dL (7-20); Calcium 8.7 mg/dL (8.6-10.8); Carbon Dioxide 28 mEq/L (19-29); Chloride 104 mEq/L (98-109); Glucose 166 mg/dL (70-99); Osmolality,Calculated 295 (280-300); Sodium 142 mEq/L (136-145); eGFR For African Americans > 60 (> 60); eGFR For Non-African Americans > 60 (> 60)
[2016-09-13 05:46] LABS: Lymphocytes # 1.8 K/mcL (0.6-4.6); Neutrophils # 3.5 K/mcL (1.6-8.9)
[2016-09-13 05:47] LABS: Platelet Estimate Normal (Normal)
[2016-09-13] MEDS: *HR* Enoxaparin 40 MG/0.4 ML SYRINGE SQ SCH (06:25)
--- NOTE | 2016-09-13 07:00 | Internal Med Progress Note ---
<Mau Montano - Last Filed: 09/13/16 10:45> Date of Encounter: 09/13/16 Time of Encounter: 08:00 - Assessment and plan (1) Community acquired pneumonia Current Visit: Yes Status: Acute Assessment and plan: likely viral PNA with superadded bacterial infection. day 3 antibiotics and getting better steroids : day 3 and will give only for 5 days eating well and walking around in the room. 09/12/2016 Day 4 antibiotics patient feels that she is improving but still has cough which bothers her. plan will continue Abx/Steroids/BDAs will get her codeine base cough syrup. night time anxiolytic to help in sleep. 09/13/16 -Day 6 abx -Patient feels like she is getting better. However, still having cough, non productive. -Patient would feel most comfortable staying one more night. Plan -cont abx, steroids, BDAs -Continue tessolon pearls and cough syrup -night anxiolytic to help sleep -Incentive spirometry ordered -Probable discharge tomorrow (2) Sinusitis Current Visit: Yes Status: Acute Assessment and plan: getting better Qualifiers: Sinusitis location: unspecified location Chronicity: unspecified Qualified Code(s): J32.9 - Chronic sinusitis, unspecified (3) COPD (chronic obstructive pulmonary disease) Current Visit: Yes Status: Chronic Assessment and plan: -see above Qualifiers: COPD type: unspecified COPD Qualified Code(s): J44.9 - Chronic obstructive pulmonary disease, unspecified (4) Type 2 diabetes mellitus Current Visit: Yes Status: Chronic Qualifiers: Diabetes mellitus complication status: with unspecified complications Diabetes mellitus ferry terminal supervisor insulin use: unspecified nursing home insulin use status Qualified Code(s): E11.8 - Type 2 diabetes mellitus with unspecified complications (5) Sepsis Current Visit: Yes Status: Acute Assessment and plan: -Patient had elevated Heart rate and respiratory rate in the ED. No leukocytosis or fever -CT showed pneumonia. Patient is non toxic appearing -Abx switched to cover CAP. -Instructed to keep this diagnosis through the entirety of her stay and at discharge. Plan -Continue therapy as stated above. Qualifiers: Sepsis type: sepsis due to unspecified organism Qualified Code(s): A41.9 - Sepsis, unspecified organism - Subjective Interval history: 71 y/o F admitted for acute respiratory failure with hypoxia. Patient had persistent sinus congestion and postnasal drainage and recurrent cough and went to [facility] to get medicine. [facility] examination found her to have an oxygen saturation 70-80%. Admitted to fevers and chills and generalized weakness and malaise and sputum production. Denied any hemoptysis, epistaxis, recent travel. Former heavy smoker. Not on home oxygen. No recent hospitalizations 09/10/16 Patient feels like her condition is much improved. Still has some shortness of breath and productive cough. Denies any nausea, vomiting, fever, chills. Biggest complaint is her cough. Explained to patient that it is important that she keep coughing and not suppressed with medication. Unless, patient is unable to sleep because of the cough, then willing to prove medication. Patient does not feel cough is debilitating or causing her a headache. is resting comfortably in bed on Nasal canula with O2 stats of 93% on 3L 09/13/16 Patient feeling well today. Still having the residual cough that is non productive. Denies any N/V/F. Having normal bowel movements. Patient would feel more comfortable if she stayed one more night. - Constitutional Vitals: Temp Pulse Resp BP Pulse Ox 97.4 F L 70 16 134/71 94 L 09/13/16 04:00 09/13/16 04:00 09/13/16 05:46 09/13/16 04:00 09/13/16 05:46 General appearance: Present: cooperative, A&O X 3, answers questions appropriately - Head Head exam: Present: atraumatic, normocephalic - Eye Eye exam: Present: PERRL, conjuntiva pink, sclera anicteric Pupils: Present: PERRL - Neck Neck exam general surgery: Present: supple, trachea midline. Absent: lymphadenopathy - Respiratory Respiratory exam: Present: rhonchi. Absent: accessory muscle use, rales, wheezes - Cardiovascular Cardiovascular exam: Present: RRR, +S1, +S2. Absent: diastolic murmur, gallop, rubs, systolic murmur - GI/Abdominal GI/Abdominal exam: Present: normal bowel sounds, soft, no peritoneal signs. Absent: distended, tenderness - Extremities Exam Extremities exam: Present: warm, radial pulses palpable and symetrical. Absent : calf tenderness, cyanotic, pedal edema - Neurological Exam Neurological exam: Present: CN II-XII intact, oriented X3, no focal deficits. Absent: pronater drift, facial droop, speech deficit - Skin Skin exam: Present: dry, intact Internal Medicine: Result - Labs CBC & Chem 7: 09/13/16 04:26 09/13/16 04:26 Labs: Short CBC 09/13/16 Range/Units 04:26 WBC 6.3 (4.3-11.1) K/mcL Hgb 11.8 (11.5-15.4) g/dL Hct 37.2 (35.3-44.9) % Plt Count 274 (140-400) K/mcL Neutrophils # 3.5 (1.6-8.9) K/mcL BMP 09/13/16 04:26 Sodium 142 Potassium 4.0 Chloride 104 Carbon Dioxide 28 BUN 6 L Creatinine 0.68 Glucose 166 H Calcium 8.7 - ABG Interpretation ABG results: ABG ABG pH 7.34 pH Units (7.32-7.45) 09/11/16 04:24 ABG pCO2 57 mmHg (35-45) H 09/11/16 04:24 ABG pO2 72 mmHg (85-104) L 09/11/16 04:24 ABG O2 Saturation 93 % (95-98) L 09/11/16 04:24 PT/INR, D-dimer PT 13.8 Seconds (9.4-12.1) H 09/10/16 01:15 - VTE Documentation of Mechanical Device: Intermittent pneumatic compression device Consult Discharge Plan - Plan Referrals: Husam Barrientos MD [Primary Care Provider] - 09/20/16 1:00 pm <Vinny Gonzalez P - Last Filed: 09/13/16 18:32> Date of Encounter: 09/13/16 - Assessment and plan (1) Community acquired pneumonia Current Visit: Yes Status: Acute (2) Acute exacerbation of chronic obstructive airways disease Current Visit: Yes Status: Acute (3) Sinusitis Current Visit: Yes Status: Acute Qualifiers: Sinusitis location: unspecified location Chronicity: unspecified Qualified Code(s): J32.9 - Chronic sinusitis, unspecified - Constitutional Vitals: Temp Pulse Resp BP Pulse Ox 98.0 F 74 18 162/87 95 09/13/16 16:00 09/13/16 16:00 09/13/16 16:10 09/13/16 16:00 09/13/16 16:10 Internal Medicine: Result - Labs CBC & Chem 7: 09/13/16 04:26 09/13/16 04:26 Labs: Short CBC 09/13/16 Range/Units 04:26 WBC 6.3 (4.3-11.1) K/mcL Hgb 11.8 (11.5-15.4) g/dL Hct 37.2 (35.3-44.9) % Plt Count 274 (140-400) K/mcL Neutrophils # 3.5 (1.6-8.9) K/mcL BMP 09/13/16 04:26 Sodium 142 Potassium 4.0 Chloride 104 Carbon Dioxide 28 BUN 6 L Creatinine 0.68 Glucose 166 H Calcium 8.7 - ABG Interpretation ABG results: ABG ABG pH 7.34 pH Units (7.32-7.45) 09/11/16 04:24 ABG pCO2 57 mmHg (35-45) H 09/11/16 04:24 ABG pO2 72 mmHg (85-104) L 09/11/16 04:24 ABG O2 Saturation 93 % (95-98) L 09/11/16 04:24 PT/INR, D-dimer PT 13.8 Seconds (9.4-12.1) H 09/10/16 01:15 - Attending Attestation I examined this patient and my medical decision-making was reviewed with the COLUMNIST/PA/Advanced Practice Nurse/Resident Physician. I agree with the documented findings, disposition and treatment plan as described except to the extent set forth below. possible home tomorrow if she is feeling well, if not will get pulmonary evaluation
[2016-09-13] MEDS: Insulin LISPRO 300 UNITS/3 ML VIAL SQ SCH ×4 (09:08→22:07)
[2016-09-13] MEDS: Nicotine 21 MG PATCH.TD24 TD SCH (09:09)
[2016-09-13] MEDS: predniSONE 20 MG TABLET PO SCH (09:09)
[2016-09-13] MEDS: Lisinopril 20 MG TABLET PO SCH (09:12)
[2016-09-13] MEDS ORDERED: *HR* LORazepam 0.5 MG TABLET PO PRN (10:52)
[2016-09-13] MEDS: Budesonide/Formoterol 80/4.5 MDI IH SCH ×2 (11:12→23:36)
[2016-09-13] MEDS: 0.9 % Sodium Chloride 1,000 ML IVC SCH (12:40)
[2016-09-14] MEDS ORDERED: Azithromycin 250 MG TABLET PO SCH (01:00)
[2016-09-14] MEDS: Ipratropium/Albuterol Neb 3 ML IH SCH ×3 (04:19→15:50)
[2016-09-14] MEDS: *HR* Enoxaparin 40 MG/0.4 ML SYRINGE SQ SCH (06:29)
[2016-09-14 07:38] VITALS: BP 154/75
--- NOTE | 2016-09-14 08:31 | Discharge Summary ---
<DustyMau - Last Filed: 09/14/16 18:21> Date of Encounter: 09/14/16 Time of Encounter: 08:31 - Discharge Diagnosis (1) Community acquired pneumonia Priority: Primary Status: Acute Comments: -Patient discharged on Levaquin, steroid taper, tesslon pears, codeine cough syrup (2) Sinusitis Priority: Primary Status: Acute Qualifiers: Sinusitis location: unspecified location Chronicity: unspecified Qualified Code(s): J32.9 - Chronic sinusitis, unspecified (3) COPD (chronic obstructive pulmonary disease) Priority: Primary Status: Chronic Qualifiers: COPD type: unspecified COPD Qualified Code(s): J44.9 - Chronic obstructive pulmonary disease, unspecified (4) Type 2 diabetes mellitus Priority: Primary Status: Chronic Qualifiers: Diabetes mellitus complication status: with unspecified complications 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 Qualified Code(s): E11.8 - Type 2 diabetes mellitus with unspecified complications (5) Sepsis Priority: Primary Status: Resolved Qualifiers: Sepsis type: sepsis due to unspecified organism Qualified Code(s): A41.9 - Sepsis, unspecified organism - Discharge Medications Prescriptions: HYDROcodone BIT/Homatropine LQ [Hycodan Syrup] 5 mg PO Q4HR PRN #1 / PRN Reason: Cough Benzonatate [Tessalon] 200 mg PO TID PRN #14 capsule PRN Reason: Cough Fluconazole [Diflucan] 150 mg PO DAILY #1 tab HYDROcodone BIT/Homatropine LQ [Hycodan Syrup] 5 ml PO Q4H PRN #473 syrup PRN Reason: cough Levofloxacin [Levaquin] 750 mg PO Q24H #4 tablet PredniSONE [Prednisone] 40 mg PO TAPER 5 Days Home Medications: Albuterol Sulfate [Albuterol Inhaler] 2 puff IH Q4H PRN 09/09/16 [History] Cholecalciferol (D-3) [Vitamin D] 2,000 unit PO DAILY 09/09/16 [History] Colesevelam [Welchol] 1,875 mg PO BID 09/09/16 [History] Fluticasone/Salmeterol [Advair Hfa 230-21 Mcg Inhaler] 2 puff IH BID 09/09/16 [ History] Glimepiride [Amaryl] 4 mg PO BID 09/09/16 [History] Lisinopril [Zestril] 20 mg PO DAILY 09/09/16 [History] Metformin HCl [Glucophage] 1,000 mg PO BID 09/09/16 [History] Nicotine Patch [Nicoderm] 21 mg TD DAILY 09/09/16 [History] Benzonatate [Tessalon] 200 mg PO TID PRN #14 capsule 09/14/16 [Rx] Fluconazole [Diflucan] 150 mg PO DAILY #1 tab 09/14/16 [Rx] HYDROcodone BIT/Homatropine LQ [Hycodan Syrup] 5 mg PO Q4HR PRN #1 / 09/14/16 [ Rx] HYDROcodone BIT/Homatropine LQ [Hycodan Syrup] 5 ml PO Q4H PRN #473 syrup [Rx] Levofloxacin [Levaquin] 750 mg PO Q24H #4 tablet 09/14/16 [Rx] PredniSONE [Prednisone] 40 mg PO TAPER 5 Days 09/14/16 [Rx] Allergies/Adverse Reactions: Allergies No Known Allergies Allergy (Verified 11/17/15 10:14) Date of admission: 09/10/16 10:07 Primary care physician: Husam Barrientos MD Consults: 09/10/16 14:30 Consult to Chief Construction Inspector [CONS] Routine Reason for SW Consult: Poss new home O2 Discharging clinician: Mau Montano Anticipated date of discharge: 09/14/16 - Patient Status Disposition: Home, Self-Care Condition: Good Functional capacity at discharge: independent ambulation Overall status at discharge: patient is progressing back to baseline (residual non productive cough.) - Discharge Instructions Instructions: Benzonatate (By mouth), Hydrocodone/Acetaminophen (By mouth), Prednisone (By mouth), Levofloxacin (By mouth), Acute Respiratory Distress Syndrome (DC), Sinusitis (GEN), Diabetes Mellitus Type 2 in Adults (DC), Chronic Obstructive Pulmonary Disease (DC), Pneumonia (DC), Sinusitis, [place] Up (GEN) Follow Up With: Husam Barrientos MD [Primary Care Provider] - 09/20/16 1:00 pm Additional Instructions: Follow-up appointments: If there is not an appointment listed below, please call your physician and schedule a follow-up appointment. If you have congestive heart failure and your symptoms return, make an appointment with your physician. Symptoms: If your condition changes or you experience any of the following symptoms, notify your physician immediately: Unusual or worsening pain, fever, persistent nausea and vomiting, bleeding, increase in swelling (especially in your legs), sudden weight gain, extreme dizziness, chest pain, increased drainage or redness from a wound or incision. Go to the emergency department if you experience a problem with breathing. Weights: If you have a history of swelling or shortness of breath, weigh yourself daily and notify your physician if you have a weight gain of two or more pounds in one day or 5 or more pounds in a week. If you experience any of the warning signs for stroke: Sudden numbness or weakness of the face, arm or leg; especially on one side of the body, sudden confusion, trouble speaking or understanding, sudden trouble seeing in one or both eyes, sudden trouble walking, dizziness, loss of balance or coordination, sudden sever headache with no cause; Call 911 or go to the emergency room. Stroke is a medical emergency. Some risk factors for stroke: Age, cigarette smoking, diabetes, excessive alcohol consumption, family history , high blood pressure, overweight, physical inactivity, prior stroke, heart attack, diagnosis of carotid artery stenosis or other artery disease. If you smoke, STOP: Smoking or tobacco use significantly increases your risk of heart and lung disease. Your chance of disease greatly increases if you continue to smoke. For more information, call the [place] tobacco quit line for smoking cessation 0 QUIT-NOW ( ) - Diet and Activity Activity: increase activity as tolerated Diet: advance to your usual diet Interval History: see below Hospital course: Ms. Faustin is a 71 year old female, PMH COPD, sinusitis, admitted for pneumonia on 09/09/16. Patient originally was having a sinus infection, went to [facility] for OTC medication and found her O2 to be 70%. In the ED Sinus CT, CTA chest showed sinusitis and hilar lymphadenopathy and pneumonia. Lungs unchanged , no PE or pneumothorax. Patient started on steroids, abx, BDAs, nasal cannula 2L. Throughout the hospital course, patient had residual non productive cough. patients main symptoms continued to improve. At the day of discharge, a trial of room air done. Patient desaturated to 85%, but otherwise felt fine. I feel patient should be sent home on oxygen. Patient does live alone in a house. Does have friends close by and people to check on her. She feels comfortable going home and discharged with prescriptions outlined above. - Time Spent with Patient Total time spent providing and/or coordinating discharge services: Greater than 30 minutes - Constitutional Vitals: Temp Pulse Resp BP Pulse Ox 97.4 F L 77 16 154/75 94 L 09/14/16 07:31 09/14/16 07:31 09/14/16 07:31 09/14/16 07:31 09/14/16 07:31 General appearance: Present: cooperative, A&O X 3, answers questions appropriately - Head Head exam: Present: atraumatic, normocephalic - Eye Eye exam: Present: PERRL, conjuntiva pink, sclera anicteric Pupils: Present: PERRL - Neck Neck exam general surgery: Present: supple, trachea midline. Absent: lymphadenopathy - Respiratory Respiratory exam: Present: wheezes. Absent: accessory muscle use, rhonchi - Cardiovascular Cardiovascular exam: Present: RRR, +S1, +S2. Absent: diastolic murmur, gallop, rubs, systolic murmur - GI/Abdominal GI/Abdominal exam: Present: normal bowel sounds, soft, no peritoneal signs. Absent: distended, tenderness - Extremities Exam Extremities exam: Present: warm, radial pulses palpable and symetrical. Absent : calf tenderness, cyanotic, pedal edema - Neurological Exam Neurological exam: Present: CN II-XII intact, oriented X3, no focal deficits. Absent: pronater drift, facial droop, speech deficit - Skin Skin exam: Present: dry, intact - VTE Documentation of Mechanical Device: Intermittent pneumatic compression device <Vinny Gonzalez P - Last Filed: 09/14/16 18:24> Date of Encounter: 09/14/16 - Discharge Diagnosis (1) Community acquired pneumonia Status: Acute (2) Acute exacerbation of chronic obstructive airways disease Status: Acute (3) Sinusitis Status: Acute Qualifiers: Sinusitis location: unspecified location Chronicity: unspecified Qualified Code(s): J32.9 - Chronic sinusitis, unspecified Date of admission: 09/10/16 10:07 Primary care physician: Husam Barrientos MD Consults: 09/10/16 14:30 Consult to Chief Construction Inspector [CONS] Routine Reason for SW Consult: Poss new home O2 Hospital course: Ms. Faustin is a 71 year old female - Time Spent with Patient Total time spent providing and/or coordinating discharge services: - Constitutional Vitals: Temp Pulse Resp BP Pulse Ox 97.4 F L 77 16 154/75 94 L 09/14/16 07:31 09/14/16 07:31 09/14/16 07:31 09/14/16 07:31 09/14/16 10:53 - Attending Attestation I examined this patient and my medical decision-making was reviewed with the AUTO TRANSMISSION MECHANIC/PA/Advanced Practice Nurse/Resident Physician. I agree with the documented findings, disposition and treatment plan as described except to the extent set forth below.
[2016-09-14] MEDS: Nicotine 21 MG PATCH.TD24 TD SCH (08:38)
[2016-09-14] MEDS: predniSONE 20 MG TABLET PO SCH (08:39)
[2016-09-14] MEDS: Insulin LISPRO 300 UNITS/3 ML VIAL SQ SCH ×2 (08:39→12:31)
[2016-09-14] MEDS: Lisinopril 20 MG TABLET PO SCH (08:39)
[2016-09-14] MEDS: Budesonide/Formoterol 80/4.5 MDI IH SCH (10:54)
== END 2016-09-14 16:00 | disposition home or self-care (01) | DRG 871 ==
LOC: 2NENU 20:08 → EMEROO 20:08 → 2NENU 23:41
PROVIDERS: ADMIT Internal Medicine; ATTEND Internal Medicine

== ENCOUNTER 2018-02-23 10:48 | Inpatient (IN) ==
[2018-02-23] MEDS ORDERED: Ipratropium/Albuterol Neb 3 ML IH ONE (11:13)
[2018-02-23] MEDS ORDERED: methylPREDNISolone 125 MG/2 ML VIAL IVP ONE (11:13)
--- NOTE | 2018-02-23 11:37 | Emergency Department Note ---
Disposition Clinical Impression: COPD (chronic obstructive pulmonary disease) Qualifiers: COPD type: unspecified COPD Qualified Code(s): J44.9 - Chronic obstructive pulmonary disease, unspecified Disposition: Admitted As Inpatient Condition: Fair Referrals: Husam Barrientos MD [Primary Care Provider] - Forms: ED Satisfaction Letter Time of Disposition: 13:01 General Adult HPI - General Chief complaint: ED Shortness of Breath/Dyspnea Stated complaint: COPD Time Seen by Provider: 02/23/18 10:59 Nursing Notes Reviewed: Yes Vital Signs Reviewed: Yes - History of Present Illness HPI Narrative: 72-year-old female presents to the emergency department with complaints of worsening coughing, sneezing, congestion, and fever. She has recently been treated for a COPD exacerbation with oral Augmentin and a steroid taper. Her last dose of amoxicillin was last night. She says her current symptoms began last night and have continued throughout the night making it difficult for her to sleep. She has continued to cough up green and yellow sputum which has occurred throughout her most recent COPD exacerbation for which she has been treated. She states that her worsening cough has caused her to have frontal head pain as well as throat pain. She says she has experienced this green and yellow sputum previously which was correlated with a COPD exacerbation. She denies any increasing dyspnea, chest pain. She denies history of heart attack, stroke, blood clots. She is a former smoker that quit about 8 months ago. Pain Scale: 0 - Related Data Home Medications Medication Instructions Recorded Confirmed Albuterol Sulfate [Albuterol 2 puff IH Q4H PRN 09/09/16 09/09/16 Inhaler] Cholecalciferol (D-3) [Vitamin D] 2,000 unit PO DAILY 09/09/16 09/09/16 Colesevelam [Welchol] 1,875 mg PO BID 09/09/16 09/09/16 Fluticasone/Salmeterol [Advair Hfa 2 puff IH BID 09/09/16 09/09/16 230-21 Mcg Inhaler] Glimepiride [Amaryl] 4 mg PO BID 09/09/16 09/09/16 Lisinopril [Zestril] 20 mg PO DAILY 09/09/16 09/09/16 Metformin HCl [Glucophage] 1,000 mg PO BID 09/09/16 09/09/16 Nicotine Patch [Nicoderm] 21 mg TD DAILY 09/09/16 09/09/16 Previous Rx's Medication Instructions Recorded Benzonatate [Tessalon] 200 mg PO TID PRN #14 capsule 09/14/16 Fluconazole [Diflucan] 150 mg PO DAILY #1 tab 09/14/16 HYDROcodone BIT/Homatropine LQ 5 mg PO Q4HR PRN #1 / 09/14/16 [Hycodan Syrup] HYDROcodone BIT/Homatropine LQ 5 ml PO Q4H PRN #473 syrup 09/14/16 [Hycodan Syrup] Levofloxacin [Levaquin] 750 mg PO Q24H #4 tablet 09/14/16 predniSONE [Prednisone] 40 mg PO TAPER 5 Days tab.ds.pk 09/14/16 Allergies Allergy/AdvReac Type Severity Reaction Status Date / Time No Known Allergies Allergy Verified 02/23/18 10:50 All systems ED: reviewed and negative except as stated. Review of Systems: As Per HPI Constitutional: Denies: fever, chills ENT ED: Reports: throat pain, congestion. Denies: ear pain, dental pain Cardiovascular: Denies: chest pain, palpitations, dyspnea on exertion, edema, syncope Respiratory: Reports: cough, dyspnea, wheezes, sputum production. Denies: hemoptysis, stridor Gastrointestinal: Denies: abdominal pain, nausea, vomiting Genitourinary: Denies: dysuria, frequency Musculoskeletal: Denies: back pain, neck pain Integumentary: Denies: rash Neurological: Denies: headache, weakness Past Medical History - Past Medical History Attestation: Yes The following information was validated with the patient. Medical history: Reports: arthritis, COPD, diabetes, GERD, GI bleed, hyperlipidemia, hypertension, osteoporosis, other Surgical history: Reports: cataract, cholecystectomy, hysterectomy, orthopedic, other, other Psychiatric history: Reports: no psych history - Social History Smoking Status: Former smoker Smokeless Tobacco Status: No Alcohol use: Reports: none Drug use: Reports: none Physical Exam CONSTITUTIONAL: Well-appearing; well-nourished; A&O X 3, in no apparent distress. Vitals within normal limits. HEAD: Normocephalic; atraumatic EYES: PERRL, no scleral icterus NOSE: The nose is normal in appearance without rhinorrhea NECK: No JVD or distended neck veins RESP: Normal chest excursion with respiration; mild wheezes in the bilateral bases. No rales or ronchi. CARD: Regular rhythm, without murmurs, rub or gallop ABD: Non-distended; non-tender, soft, without rigidity, rebound or guarding,no pulsatile mass CHEST: No pain with palpation SKIN: Normal for age and race; warm and dry without diaphoresis ; no apparent lesions EXTREMITIES: Pulses are 2 plus and equal times 4 extremities, no peripheral edema or calf muscle pain Course Course Narrative: Patient recently treated for what sounds like acute COPD exacerbation versus pneumonia with Augmentin. She is also currently on a steroid taper which is every other day. Discussed with the patient the plan is times throughout her with a breathing treatment given her minimal wheezing. We will also evaluate her for her shortness of breath including ruling out any cardiac ideology other infectious source such as pneumonia. Patient's main concern seems to be the cough that she has, she does not express concern for shortness of breath but when probed does mention that she has had episodes of shortness of breath throughout the night. - Reevaluation(s) Reevaluation #1: Patient states that her symptoms are feeling improved after the breathing treatment. Her lungs do sound have better aeration and less wheezing. Discussed plan at this time is similar the hospital for COPD exacerbation. Given that she has failed outpatient treatment think this is the most appropriate option at this time. Patient agrees. I discussed the patient's case with the hospitalist on-call and he also agrees. Time: 13:00 Vital Signs Temperature 98.4 F 02/23/18 10:51 Pulse Rate 94 02/23/18 10:51 Respiratory Rate 24 02/23/18 10:51 Blood Pressure 152/72 02/23/18 10:51 O2 Sat by Pulse Oximetry 93 02/23/18 10:51 Temperature 98.4 F 02/23/18 11:33 Pulse Rate 106 02/23/18 12:30 Respiratory Rate 16 02/23/18 12:30 Blood Pressure 136/52 02/23/18 12:30 O2 Sat by Pulse Oximetry 92 02/23/18 12:30 Oxygen Delivery Oxygen Delivery Nasal Cannula Medical Decision Making - Medical Records Medical records reviewed: Yes I reviewed the patient's medical records. - Lab Data Lab results reviewed: Yes I reviewed the patient's lab results. Result diagrams: 02/23/18 11:43 02/23/18 11:43 Lab Results 02/23/18 02/23/18 02/23/18 Range/Units 11:43 11:43 11:43 WBC 16.6 H (4.3-11.1) K/mcL RBC 4.73 (3.82-4.97) M/mcL Hgb 13.9 (11.5-15.4) g/dL Hct 42.7 (35.3-44.9) % MCV 90.3 (83.0-100.0) fL MCH 29.4 (28.0-33.3) pg MCHC 32.6 (31.6-35.5) g/dL RDW 12.8 (11.5-14.5) % Plt Count 308 (140-400) K/mcL MPV 9.8 (9.4-12.4) fL Immature Gran % 0.5 (0-4) % Seg Neutrophils % 85.0 % Lymphocytes % 7.3 % Monocytes % 6.6 % Eosinophils % 0.2 % Basophils % 0.4 % Neutrophils # 14.2 H (1.6-8.9) K/mcL Lymphocytes # 1.2 (0.6-4.6) K/mcL Monocytes # 1.1 (0.0-1.3) K/mcL Eosinophils # 0.0 (0.0-0.6) K/mcL Basophils # 0.1 (0.0-0.2) K/mcL Sodium 137 (136-145) mEq/L Potassium 3.8 (3.5-5.1) mEq/L Chloride 101 (98-107) mEq/L Carbon Dioxide 27 (23-29) mEq/L BUN 14 (8-23) mg/dL Creatinine 0.78 (0.60-1.20) mg/dL Est GFR ( Amer) > 60 (> 60) Est GFR (Non-Af Amer) > 60 (> 60) BUN/Creatinine Ratio 18 (6-26) Glucose 256 H (70-105) mg/dL Calculated Osmolality 293 (280-300) Calcium 9.3 (8.6-10.3) mg/dL Troponin I < 0.03 (< 0.04) ng/mL B-Natriuretic Peptide 32 (Less than 100) pg/mL - Radiology Data Radiology results reviewed: Yes I reviewed the patient's radiology results. Chest X-Ray 02/23/18 11:13 IMPRESSION: No acute cardiopulmonary process. D/ / Suraj Stevens MD / Suraj Stevens MD Interpreting Provider: Suraj Stevens MD - EKG Data EKG #1 EKG attestation: Yes I reviewed and interpreted this EKG. EKG results narrative: EKG done at 10:54 shows sinus rhythm at a rate of 98 bpm. Normal axis. Normal intervals. No signs of ischemia. No changes when compared to EKG done on 09/09.
[2018-02-23 11:57] LABS: Basophils # 0.1 K/mcL (0.0-0.2); Basophils % 0.4 %; Eosinophils % 0.2 %; Hematocrit 42.7 % (35.3-44.9); Hemoglobin 13.9 g/dL (11.5-15.4); Immature Granulocytes % 0.5 % (0-4); Lymphocytes # 1.2 K/mcL (0.6-4.6); Lymphocytes % 7.3 %; Mean Corpuscular HGB Conc 32.6 g/dL (31.6-35.5); Mean Corpuscular Hemoglobin 29.4 pg (28.0-33.3); Mean Corpuscular Volume 90.3 fL (83.0-100.0); Mean Platelet Volume 9.8 fL (9.4-12.4); Monocytes # 1.1 K/mcL (0.0-1.3); Monocytes % 6.6 %; Neutrophils # 14.2 K/mcL (1.6-8.9); Platelet Count 308 K/mcL (140-400); Red Blood Count 4.73 M/mcL (3.82-4.97); Red Cell Distribution Width 12.8 % (11.5-14.5)
--- NOTE | 2018-02-23 12:13 | Emergency Department Note ---
Disposition Clinical Impression: COPD (chronic obstructive pulmonary disease) Disposition: Admitted As Inpatient Condition: Fair General Adult HPI - General Chief complaint: ED Shortness of Breath/Dyspnea Stated complaint: COPD Time Seen by Provider: 02/23/18 10:59 Source: patient Limitations: no limitations - History of Present Illness Pain Scale: 0 - Related Data Home Medications Medication Instructions Recorded Confirmed Albuterol Sulfate [Albuterol 2 puff IH Q4-6H PRN 02/23/18 02/23/18 Inhaler] Colesevelam [Welchol] 1,875 mg PO DAILY 02/23/18 02/23/18 Glimepiride [Amaryl] 4 mg PO BID 02/23/18 02/23/18 Losartan Potassium [Cozaar] 50 mg PO DAILY 02/23/18 02/23/18 Metformin HCl [Glucophage] 1,000 mg PO BID 02/23/18 02/23/18 Allergies Allergy/AdvReac Type Severity Reaction Status Date / Time No Known Allergies Allergy Verified 02/23/18 10:50 Constitutional: Denies: fever, chills ENT ED: Reports: throat pain, congestion. Denies: ear pain, dental pain Cardiovascular: Denies: chest pain, palpitations, dyspnea on exertion, edema, syncope Respiratory: Reports: cough, dyspnea, wheezes, sputum production. Denies: hemoptysis, stridor Gastrointestinal: Denies: abdominal pain, nausea, vomiting Genitourinary: Denies: dysuria, frequency Musculoskeletal: Denies: back pain, neck pain Integumentary: Denies: rash Neurological: Denies: headache, weakness Past Medical History - Past Medical History Medical history: Reports: arthritis, COPD, diabetes, GERD, GI bleed, hyperlipidemia, hypertension, osteoporosis, other Surgical history: Reports: cataract, cholecystectomy, hysterectomy, orthopedic, other, other Psychiatric history: Reports: no psych history - Social History Smoking Status: Former smoker Smokeless Tobacco Status: No Alcohol use: Reports: none Drug use: Reports: none Physical Exam - General Limitations: no limitations General appearance: alert, in no apparent distress Course Vital Signs Temperature 98.4 F 02/23/18 10:51 Pulse Rate 94 02/23/18 10:51 Respiratory Rate 24 02/23/18 10:51 Blood Pressure 152/72 02/23/18 10:51 O2 Sat by Pulse Oximetry 93 02/23/18 10:51 Temperature 97.7 F 02/23/18 16:30 Pulse Rate 99 02/23/18 16:30 Respiratory Rate 18 02/23/18 16:30 Blood Pressure 128/70 02/23/18 16:30 O2 Sat by Pulse Oximetry 94 02/23/18 16:30 Oxygen Delivery Oxygen Delivery Nasal Cannula Medical Decision Making - Lab Data Result diagrams: 02/23/18 11:43 02/23/18 11:43 Lab Results 02/23/18 02/23/18 02/23/18 Range/Units 11:43 11:43 11:43 WBC 16.6 H (4.3-11.1) K/mcL RBC 4.73 (3.82-4.97) M/mcL Hgb 13.9 (11.5-15.4) g/dL Hct 42.7 (35.3-44.9) % MCV 90.3 (83.0-100.0) fL MCH 29.4 (28.0-33.3) pg MCHC 32.6 (31.6-35.5) g/dL RDW 12.8 (11.5-14.5) % Plt Count 308 (140-400) K/mcL MPV 9.8 (9.4-12.4) fL Immature Gran % 0.5 (0-4) % Seg Neutrophils % 85.0 % Lymphocytes % 7.3 % Monocytes % 6.6 % Eosinophils % 0.2 % Basophils % 0.4 % Neutrophils # 14.2 H (1.6-8.9) K/mcL Lymphocytes # 1.2 (0.6-4.6) K/mcL Monocytes # 1.1 (0.0-1.3) K/mcL Eosinophils # 0.0 (0.0-0.6) K/mcL Basophils # 0.1 (0.0-0.2) K/mcL Sodium 137 (136-145) mEq/L Potassium 3.8 (3.5-5.1) mEq/L Chloride 101 (98-107) mEq/L Carbon Dioxide 27 (23-29) mEq/L BUN 14 (8-23) mg/dL Creatinine 0.78 (0.60-1.20) mg/dL Est GFR ( Amer) > 60 (> 60) Est GFR (Non-Af Amer) > 60 (> 60) BUN/Creatinine Ratio 18 (6-26) Glucose 256 H (70-105) mg/dL Calculated Osmolality 293 (280-300) Calcium 9.3 (8.6-10.3) mg/dL Troponin I < 0.03 (< 0.04) ng/mL B-Natriuretic Peptide 32 (Less than 100) pg/mL Attestation Statement - Attestation Attestation: I examined this patient and my medical decision-making was reviewed with the Resident Physician. I agree with the documented findings, disposition and treatment plan as described except to the extent set forth below. Patient presents to the ED with a chief complaint of cough and wheeze. Onset last night. Patient has been treated for a COPD exacerbation with Augmentin and steroids. She is worsened over the past 24 hours. She went to her PCPs office. Her sat was 90. They sent her over for evaluation and admission. She denies any change in sputum. She denies any fever. She denies chest pain. She also denies feeling short of breath. On examination she is in no distress. Diffuse expiratory wheeze. Plan. Nebs and steroids. Likely admission. Chest X-Ray 02/23/18 11:13 IMPRESSION: No acute cardiopulmonary process. D/ / Suraj Stevens MD / Suraj Stevens MD Interpreting Provider: Suraj Stevens MD wheezing. Plan. Nebs and steroids. Cardiac workup. Admission.
[2018-02-23 12:20] LABS: Troponin I < 0.03 ng/mL (< 0.04)
[2018-02-23 12:21] LABS: BUN/Creatinine Ratio 18 (6-26); Blood Urea Nitrogen 14 mg/dL (8-23); Calcium 9.3 mg/dL (8.6-10.3); Carbon Dioxide 27 mEq/L (23-29); Chloride 101 mEq/L (98-107); Glucose 256 mg/dL (70-105); Osmolality,Calculated 293 (280-300); Potassium 3.8 mEq/L (3.5-5.1); Sodium 137 mEq/L (136-145); eGFR For African Americans > 60 (> 60); eGFR For Non-African Americans > 60 (> 60)
[2018-02-23] MEDS ORDERED: Insulin DETEMIR 100 UNIT/ML X5UNITS SQ ONE ×2 (13:05→17:23)
[2018-02-23] MEDS ORDERED: *HR* Metoprolol 5 MG/5 ML VIAL IVP PRN (13:05)
[2018-02-23] MEDS ORDERED: *HR* Dextrose 50 % in Water (Syg) 50 ML SYRINGE IVP PRN (13:31)
[2018-02-23] MEDS ORDERED: D5% in Water 1,000 ML IVC PRN (13:31)
[2018-02-23] MEDS ORDERED: Dextrose Gel 15 GM/37.5 ML TUBE PO PRN ×2 (13:31)
--- NOTE | 2018-02-23 13:59 | Internal Med History&Physical ---
Date of Encounter: 02/23/18 Time of Encounter: 13:47 Internal Medicine - H&P: HPI History of present illness: Ms. Faustin is a 72 year old female with history of COPD, DM, GIB, hypertension presented for for worsening cough with sputum production along with a developing shortness of breath. She states she was recently treated with Augmentin for sinusitis, but was only able to take few doses before coming in. She admits to fever last night and nausea without vomiting. She had diffuse wheezing. A chest x-ray showed no acute process. BNP was negative, troponin was negative. EKG was unremarkable and unchanged from prior EKG. She had elevated WBC at 16k and HR 106 BPM with normal BP. Past Med Surg Social Fam HX - Past Medical History Medical history: arthritis, COPD, diabetes, GERD, GI bleed, hyperlipidemia, hypertension, osteoporosis, other Psychiatric history: no psych history - Past Surgical History Surgical History: cataract, cholecystectomy, hysterectomy, orthopedic, other, other Additional surgical history: oophorectomy - Social History Smoking Status: Former smoker Smokeless Tobacco Status: No Alcohol use: none Drug use: none - Family History Mother Family Member Ethnicity: Non- Living Status: Hx Family Cardiac Disorders: No Hx Family Respiratory Disorders: Yes Hx Family Cancer: No Hx Family GI Disorders: No Hx Family Endocrine Disorder: Yes (borderline) Hx Family Neuromuscular Disorders: No Hx Family Neurologic Disorders: No Hx Family HEENT Disorders: No Hx Family Autoimmune Disorders: No Internal Medicine - H&P: Meds Albuterol Sulfate [Albuterol Inhaler] 2 puff IH Q4-6H PRN 02/23/18 [History] Colesevelam [Welchol] 1,875 mg PO DAILY 02/23/18 [History] Glimepiride [Amaryl] 4 mg PO BID 02/23/18 [History] Losartan Potassium [Cozaar] 50 mg PO DAILY 02/23/18 [History] Metformin HCl [Glucophage] 1,000 mg PO BID 02/23/18 [History] 3 Allergy/AdvReac Type Severity Reaction Status Date / Time No Known Allergies Allergy Verified 02/23/18 10:50 All Systems PM: A 10-system review of systems was performed and is negative for pertinent findings except as documented above in the HPI. - Constitutional Constitutional: fever(s), no chills, no night sweats - EENT Eyes: no change in vision, no discharge, no pain, no photophobia Nose, mouth and throat: sinus pressure - Cardiovascular Cardiovascular ROS IM: dyspnea, no chest pain, no diaphoresis, no lightheadedness, no palpitations, no syncope - Respiratory Respiratory: dyspnea (with coughing) - Gastrointestinal Gastrointestinal: no abdominal pain, no diarrhea, no hematemesis, no hematochezia, no melena, no nausea, no vomiting - Musculoskeletal Musculoskeletal ROS IM: no numbness, no tingling - Neurological Neurological ROS: no confusion, no convulsions, no focal weakness, no numbness, no tingling, no tremor(s) - Constitutional Vitals: Temp Pulse Resp BP Pulse Ox 98.4 F 105 16 125/53 90 02/23/18 11:33 02/23/18 13:00 02/23/18 13:00 02/23/18 13:00 02/23/18 13:00 - Head Head exam: Present: atraumatic, normocephalic - Eye Eye exam: Present: PERRL, conjuntiva pink, sclera anicteric Pupils: Present: PERRL - Neck Neck exam general surgery: Present: supple, trachea midline. Absent: lymphadenopathy - Respiratory Respiratory exam: Present: decreased breath sounds, wheezes. Absent: accessory muscle use, rales, respiratory distress, rhonchi - Cardiovascular Cardiovascular exam: Present: RRR, +S1, +S2. Absent: diastolic murmur, gallop, rubs, systolic murmur - GI/Abdominal GI/Abdominal exam: Present: normal bowel sounds, soft, no peritoneal signs. Absent: distended, tenderness - Extremities Exam Extremities exam: Present: warm, radial pulses palpable and symmetrical. Absent : calf tenderness, cyanotic, pedal edema - Neurological Exam Neurological exam: Present: CN II-XII intact, oriented X3, no focal deficits. Absent: pronater drift, facial droop, speech deficit - Skin Skin exam: Present: dry, intact Internal Med - H&P Results - Labs CBC & Chem 7: 02/23/18 11:43 02/23/18 11:43 - Assessment and plan (1) Acute exacerbation of chronic obstructive airways disease Current Visit: No Status: Acute Assessment and plan: Suspect trigger is lower respiratory tract infection or URI/sinusitis. Will escalate therapy to Rocephin/Azithromycin. Solu medrol Obtain procalcitonin level Respiratory panel, mycoplasma, legionella, strep pneumonia antigens If procalcitonin is negative, then DC antibiotics. Wean O2 as tolerated (2) Acute respiratory failure with hypoxia Current Visit: No Status: Acute Assessment and plan: From COPD exacerbation. Treatment as above. (3) Hypertension Current Visit: Yes Status: Acute Assessment and plan: Resume home medications. Qualifiers: Hypertension type: essential hypertension Qualified Code(s): I10 - Essential (primary) hypertension (4) SIRS (systemic inflammatory response syndrome) Current Visit: No Status: Acute Assessment and plan: Patient does not appear to be septic at this point. on admission patient had tachypnea and leukocytosis Has tachycardia now, likely from Duo neb therapy Patient was given antibiotics in the ED, which would have low use Hemodynamically stable but requires supplemental oxygen. Will obtain lactic acid level and monitor. Likely this is stress response from respiratory distress. (5) COPD (chronic obstructive pulmonary disease) Current Visit: Yes Status: Chronic Qualifiers: COPD type: unspecified COPD Qualified Code(s): J44.9 - Chronic obstructive pulmonary disease, unspecified (6) Sinusitis Current Visit: No Status: Acute Qualifiers: Sinusitis location: unspecified location Chronicity: unspecified Qualified Code(s): J32.9 - Chronic sinusitis, unspecified (7) Former heavy cigarette smoker (20-39 per day) Current Visit: No Status: Chronic (8) Type 2 diabetes mellitus Current Visit: No Status: Chronic Assessment and plan: ISS Diabetic diet Hold metformin and glimiperide Qualifiers: Diabetes mellitus prison insulin use: unspecified continuous churn buttermaker insulin use status Diabetes mellitus complication status: without complication Qualified Code(s): E11.9 - Type 2 diabetes mellitus without complications (9) History of GI bleed Current Visit: Yes Status: Acute Assessment and plan: avoid heparin will do EPCD for GI prophylaxis (10) DVT prophylaxis Current Visit: Yes Status: Acute Assessment and plan: SCDs - Time Spent With Patient Total time spent is greater than 50% in coordination of care (as documented) at patient's floor/unit and/or counseling patient:
[2018-02-23 15:07] LABS: Adenovirus Not Detected (Not Detect); Bordetella Pertussis Not Detected (Not Detect); Chlamydophila pneumoniae Not Detected (Not Detect); Coronavirus 229E Not Detected (Not Detect); Coronavirus HKU1 Not Detected (Not Detect); Coronavirus NL63 Not Detected (Not Detect); Coronavirus OC43 Not Detected (Not Detect); Human Metapneumovirus Not Detected (Not Detect); Human Rhinovirus/Enterovirus DETECTED (Not Detect); Influenza A Subtype 2009 H1 Not Detected (Not Detect); Influenza A Untypeable Not Detected (Not Detect); Influenza B Not Detected (Not Detect); Mycoplasma pneumoniae Not Detected (Not Detect); Parainfluenza Virus 1 Not Detected (Not Detect); Parainfluenza Virus 2 Not Detected (Not Detect); Parainfluenza Virus 3 Not Detected (Not Detect); Parainfluenza Virus 4 Not Detected (Not Detect); Respiratory Syncytial Virus Not Detected (Not Detect)
[2018-02-23] MEDS: MethylPREDNISolone 40 MG/ML VIAL IVP SCH ×2 (15:10→22:14)
[2018-02-23] MEDS: Azithromycin 500 MG in D5% in Water 250 ML IVPB SCH (15:10)
[2018-02-23] MEDS: Ipratropium/Albuterol Neb 3 ML IH SCH ×2 (15:42→20:03)
[2018-02-23] MEDS ORDERED: Ipratropium Neb 0.5 MG NEBULIZER IH SCH (16:00)
[2018-02-23] MEDS ORDERED: Insulin LISPRO 300 UNITS/3 ML VIAL SQ SCH ×3 (17:00→21:00)
[2018-02-23] MEDS: Insulin LISPRO 300 UNITS/3 ML VIAL SQ SCH ×2 (17:21→22:13)
[2018-02-23] MEDS ORDERED: *HR* Heparin 5,000 UNIT/ML VIAL SQ SCH (18:00)
--- NOTE | 2018-02-23 18:44 | Electrocardiograph Report ---
[place] [id number] Test Date: 2018-02-23 Pat Name: Darrian Faustin Department: 103 Room: 3B32 Gender: F Certified Medical Coding Specialist: ZANE : 1945 Requested By: Kelsey See Order Number: [id number] Reading MD: Patricia Barlow Measurements Intervals [place] Rate: 98 P: 76 [place]: 176 QRS: 36 QRSD: 110 T: 56 QT: 341 QTc: 397 Interpretive Statements SINUS RHYTHM POSSIBLE LEFT ATRIAL ENLARGEMENT [-0.1mV P WAVE IN V1/V2] Electronically Signed On 02-23-2018 18:42:18 EDT by Patricia Barlow
[2018-02-23] MEDS: Insulin DETEMIR 100 UNIT/ML X5UNITS SQ SCH (22:16)
[2018-02-24] MEDS ORDERED: 0.9 % Sodium Chloride 1,000 ML IVC ONE (03:00)
[2018-02-24] MEDS ORDERED: 0.9 % Sodium Chloride 1,000 ML ONE (03:20)
[2018-02-24] MEDS: MethylPREDNISolone 40 MG/ML VIAL IVP SCH ×2 (05:25→12:17)
[2018-02-24 10:16] LABS: BUN/Creatinine Ratio 20 (6-26); Blood Urea Nitrogen 16 mg/dL (8-23); Calcium 9.2 mg/dL (8.6-10.3); Carbon Dioxide 31 mEq/L (23-29); Chloride 100 mEq/L (98-107); Glucose 216 mg/dL (70-105); Osmolality,Calculated 294 (280-300); Potassium 4.2 mEq/L (3.5-5.1); Sodium 138 mEq/L (136-145); eGFR For African Americans > 60 (> 60); eGFR For Non-African Americans > 60 (> 60)
[2018-02-24 11:03] LABS: Basophils % 0.1 %; Hematocrit 40.8 % (35.3-44.9); Immature Granulocytes % 1.4 % (0-4); Immature Platelets 4.3 % (1.1-6.1); Lymphocytes # 0.6 K/mcL (0.6-4.6); Lymphocytes % 4.3 %; Mean Corpuscular HGB Conc 31.9 g/dL (31.6-35.5); Mean Corpuscular Hemoglobin 29.8 pg (28.0-33.3); Mean Corpuscular Volume 93.6 fL (83.0-100.0); Mean Platelet Volume 10.2 fL (9.4-12.4); Monocytes # 0.6 K/mcL (0.0-1.3); Monocytes % 4.6 %; Platelet Count 318 K/mcL (140-400); Red Blood Count 4.36 M/mcL (3.82-4.97); Segmented Neutrophils % 89.6 %
[2018-02-24] MEDS: Ipratropium/Albuterol Neb 3 ML IH SCH ×6 (11:38→20:43)
[2018-02-24] MEDS: Insulin LISPRO 300 UNITS/3 ML VIAL SQ SCH ×4 (12:12→21:01)
[2018-02-24] MEDS: cefTRIAXone 1,000 MG in Water for inj. (sterile) 20 ML 10 ML IVP SCH (12:13)
[2018-02-24] MEDS: Azithromycin 500 MG in D5% in Water 250 ML IVPB SCH (12:16)
[2018-02-24] MEDS: *HR* Heparin 5,000 UNIT/ML VIAL SQ SCH (17:18)
--- NOTE | 2018-02-24 18:43 | Internal Med Progress Note ---
Date of Encounter: 02/24/18 Time of Encounter: 15:10 - Assessment and plan (1) Acute exacerbation of chronic obstructive airways disease Current Visit: Yes Status: Acute Assessment and plan: Suspect URI is cause of exacerbation. Respiratory infectious panel positive for anterior/rhinovirus. Patient with leukocytosis as well as elevated lactic, we will continue Rocephin and Zithromax IV for now. Solu medrol IV, deescalating dose. Procalcitonin not resulted yet 02 as needed to maintain sats > 92%. Continue bronchodilators. (2) Acute respiratory failure with hypoxia Current Visit: Yes Status: Acute Assessment and plan: Patient requiring supplemental oxygen, does not have oxygen at home. Wean as tolerated O2 as needed to maintain sats greater than 92%. (3) Type 2 diabetes mellitus Current Visit: No Status: Chronic Assessment and plan: Review sliding scale insulin, Accu-Cheks before meals at bedtime, diabetic diet. Qualifiers: Diabetes mellitus oysterman insulin use: unspecified assisted insulin use status Diabetes mellitus complication status: without complication Qualified Code(s): E11.9 - Type 2 diabetes mellitus without complications (4) COPD (chronic obstructive pulmonary disease) Current Visit: Yes Status: Chronic Assessment and plan: Plan as above. Qualifiers: COPD type: unspecified COPD Qualified Code(s): J44.9 - Chronic obstructive pulmonary disease, unspecified (5) Former heavy cigarette smoker (20-39 per day) Current Visit: Yes Status: Chronic (6) SIRS (systemic inflammatory response syndrome) Current Visit: Yes Status: Acute Assessment and plan: Patient does not appear to be septic at this point. on admission patient had tachypnea and leukocytosis, currently, only leukocytosis remains. Lactic acid elevated this a.m. Procalcitonin ordered and results pending. Pt receiving IV antibiotics, IVF. Vitals are stable, pt is afebrile. Leukocytosis is decreasing. Monitor overnight. (7) History of GI bleed Current Visit: Yes Status: Chronic Assessment and plan: avoid heparin will do EPCD for GI prophylaxis (8) Hypertension Current Visit: Yes Status: Chronic Assessment and plan: chronic. stable, continue medications. Qualifiers: Hypertension type: essential hypertension Qualified Code(s): I10 - Essential (primary) hypertension (9) DVT prophylaxis Current Visit: Yes Status: Acute Assessment and plan: SCDs, no pharmacologic intervention due to prior GIB. - Time Spent With Patient Total time spent is greater than 50% in coordination of care (as documented) at patient's floor/unit and/or counseling patient: less than 15 minutes - Subjective Interval history: Pt was seen and assessed at bedside at 1501. She was alert and awake, answers questions appropriately. She states that she is feeling somewhat better but is still weak and tired. She denies headache, blurred vision, nausea, vomiting, abdominal pain, chest pain. - Constitutional Vitals: Temp Pulse Resp BP Pulse Ox 97.5 F L 76 16 114/61 93 02/24/18 16:22 02/24/18 16:22 02/24/18 16:30 02/24/18 16:22 02/24/18 16:30 General appearance: Present: cooperative, A&O X 3, pleasant, no acute distress, answers questions appropriately - Head Head exam: Present: atraumatic, normal inspection, normocephalic - Eye Eye exam: Present: normal appearance, conjuntiva pink, sclera anicteric - Neck Neck exam general surgery: Present: supple, trachea midline. Absent: lymphadenopathy, tenderness - Respiratory Respiratory exam: Present: decreased breath sounds, CTAB. Absent: accessory muscle use, chest wall tenderness, rales, respiratory distress, rhonchi, wheezes - Cardiovascular Cardiovascular exam: Present: RRR, +S1, +S2. Absent: diastolic murmur, gallop, rubs, systolic murmur - GI/Abdominal GI/Abdominal exam: Present: normal bowel sounds, soft. Absent: distended, hepatomegaly, tenderness - Extremities Exam Extremities exam: Present: normal capillary refill, normal inspection, warm, radial pulses palpable and symmetrical. Absent: calf tenderness, cyanotic, pedal edema, tenderness - Neurological Exam Neurological exam: Present: alert, oriented X3, no focal deficits. Absent: facial droop, speech deficit - Skin Skin exam: Present: dry, intact, normal color, warm. Absent: rash Internal Medicine: Result - Labs CBC & Chem 7: 02/24/18 01:15 02/24/18 01:15 Consult Discharge Plan - Plan Referrals: Husam Barrientos MD [Primary Care Provider] -
[2018-02-24] MEDS: Insulin DETEMIR 100 UNIT/ML X5UNITS SQ SCH (21:01)
[2018-02-25] MEDS: Ipratropium/Albuterol Neb 3 ML IH SCH ×7 (00:12→23:21)
[2018-02-25] MEDS: MethylPREDNISolone 40 MG/ML VIAL IVP SCH ×3 (00:19→15:27)
[2018-02-25] MEDS: *HR* Heparin 5,000 UNIT/ML VIAL SQ SCH ×3 (00:19→15:27)
[2018-02-25 05:21] LABS: Basophils % 0.1 %; Eosinophils % 0.1 %; Hematocrit 43.3 % (35.3-44.9); Hemoglobin 14.1 g/dL (11.5-15.4); Immature Granulocytes % 1.1 % (0-4); Lymphocytes # 0.8 K/mcL (0.6-4.6); Lymphocytes % 4.9 %; Mean Corpuscular HGB Conc 32.6 g/dL (31.6-35.5); Mean Corpuscular Hemoglobin 30.4 pg (28.0-33.3); Mean Corpuscular Volume 93.3 fL (83.0-100.0); Mean Platelet Volume 10.2 fL (9.4-12.4); Monocytes # 0.6 K/mcL (0.0-1.3); Monocytes % 3.8 %; Neutrophils # 14.6 K/mcL (1.6-8.9); Platelet Count 303 K/mcL (140-400); Red Blood Count 4.64 M/mcL (3.82-4.97); Red Cell Distribution Width 12.8 % (11.5-14.5)
[2018-02-25 05:41] LABS: BUN/Creatinine Ratio 20 (6-26); Blood Urea Nitrogen 14 mg/dL (8-23); Calcium 9.2 mg/dL (8.6-10.3); Carbon Dioxide 31 mEq/L (23-29); Chloride 102 mEq/L (98-107); Glucose 183 mg/dL (70-105); Osmolality,Calculated 295 (280-300); Potassium 4.2 mEq/L (3.5-5.1); Sodium 140 mEq/L (136-145); eGFR For African Americans > 60 (> 60); eGFR For Non-African Americans > 60 (> 60)
[2018-02-25] MEDS: cefTRIAXone 1,000 MG in Water for inj. (sterile) 20 ML 10 ML IVP SCH (08:50)
[2018-02-25] MEDS: Insulin LISPRO 300 UNITS/3 ML VIAL SQ SCH ×4 (08:50→21:38)
[2018-02-25] MEDS: Azithromycin 500 MG in D5% in Water 250 ML IVPB SCH (13:22)
--- NOTE | 2018-02-25 16:49 | Internal Medicine Consult Note ---
Date of Encounter: 02/25/18 - Assessment and plan (1) Acute exacerbation of chronic obstructive airways disease Current Visit: Yes Status: Acute (2) Acute respiratory failure with hypoxia Current Visit: Yes Status: Acute (3) Type 2 diabetes mellitus Current Visit: No Status: Chronic Qualifiers: Diabetes mellitus prison insulin use: unspecified director power insulin use status Diabetes mellitus complication status: without complication Qualified Code(s): E11.9 - Type 2 diabetes mellitus without complications (4) COPD (chronic obstructive pulmonary disease) Current Visit: Yes Status: Chronic Qualifiers: COPD type: unspecified COPD Qualified Code(s): J44.9 - Chronic obstructive pulmonary disease, unspecified (5) Former heavy cigarette smoker (20-39 per day) Current Visit: Yes Status: Chronic (6) SIRS (systemic inflammatory response syndrome) Current Visit: Yes Status: Acute (7) History of GI bleed Current Visit: Yes Status: Chronic (8) Hypertension Current Visit: Yes Status: Chronic Qualifiers: Hypertension type: essential hypertension Qualified Code(s): I10 - Essential (primary) hypertension (9) DVT prophylaxis Current Visit: Yes Status: Acute - Time Spent With Patient Total time spent is greater than 50% in coordination of care (as documented) at patient's floor/unit and/or counseling patient: Internal Medicine - CN: HPI - Data of Consult Requesting Physician: Cordelia Lux MD - Consult Narrative History of present illness: Ms. Faustin is a 72 year old female Past Med Surg Social Fam HX - Past Medical History Medical history: arthritis, COPD, diabetes, GERD, GI bleed, hyperlipidemia, hypertension, osteoporosis, other Psychiatric history: no psych history - Past Surgical History Surgical History: cataract, cholecystectomy, hysterectomy, orthopedic, other, other Additional surgical history: oophorectomy - Social History Smoking Status: Former smoker Smokeless Tobacco Status: No Alcohol use: none Drug use: none - Family History Mother Family Member Ethnicity: Non- Living Status: Hx Family Cardiac Disorders: No Hx Family Respiratory Disorders: Yes Hx Family Cancer: No Hx Family GI Disorders: No Hx Family Endocrine Disorder: Yes (borderline) Hx Family Neuromuscular Disorders: No Hx Family Neurologic Disorders: No Hx Family HEENT Disorders: No Hx Family Autoimmune Disorders: No Father Living Status: Hx Family Cardiac Disorders: Yes ([place]) Internal Medicine - CN: Meds Albuterol Sulfate [Albuterol Inhaler] 2 puff IH Q4-6H PRN 02/23/18 [History] Colesevelam [Welchol] 1,875 mg PO DAILY 02/23/18 [History] Glimepiride [Amaryl] 4 mg PO BID 02/23/18 [History] Losartan Potassium [Cozaar] 50 mg PO DAILY 02/23/18 [History] Metformin HCl [Glucophage] 1,000 mg PO BID 02/23/18 [History] 3 Allergy/AdvReac Type Severity Reaction Status Date / Time No Known Allergies Allergy Verified 02/23/18 10:50 Internal Medicine - CN: Exam - Constitutional Vitals: Temp Pulse Resp BP Pulse Ox 98.2 F 86 16 123/65 98 02/25/18 15:26 02/25/18 15:26 02/25/18 16:07 02/25/18 15:26 02/25/18 16:07 Internal Medicine - CN: Reslt - Labs CBC & Chem 7: 02/25/18 04:56 02/25/18 04:56 Labs: Short CBC 02/25/18 Range/Units 04:56 WBC 16.2 H (4.3-11.1) K/mcL Hgb 14.1 (11.5-15.4) g/dL Hct 43.3 (35.3-44.9) % Plt Count 303 (140-400) K/mcL Neutrophils # 14.6 H (1.6-8.9) K/mcL BMP 02/25/18 04:56 Sodium 140 Potassium 4.2 Chloride 102 Carbon Dioxide 31 H BUN 14 Creatinine 0.69 Glucose 183 H Calcium 9.2 Consult Discharge Plan - Plan Referrals: Husam Barrientos MD [Primary Care Provider] -
--- NOTE | 2018-02-25 16:53 | Internal Med Progress Note ---
Date of Encounter: 02/25/18 Time of Encounter: 09:15 - Assessment and plan (1) Acute exacerbation of chronic obstructive airways disease Current Visit: Yes Status: Acute Assessment and plan: Suspect URI is cause of exacerbation. Respiratory infectious panel positive for anterior/rhinovirus. Patient with leukocytosis as well as elevated lactic, we will continue Rocephin and Zithromax IV for now. Lactic redraw tonight. Solu medrol IV, deescalating dose in the morning to Prednisone. Procalcitonin not resulted yet 02 as needed to maintain sats > 92%. Continue bronchodilators. (2) Acute respiratory failure with hypoxia Current Visit: Yes Status: Acute Assessment and plan: Patient requiring supplemental oxygen, does not have oxygen at home. Wean as tolerated Will do walk test in the morning for 02 qualification, pt states that she had home 02 " a couple of years ago" for same. O2 as needed to maintain sats greater than 92%. (3) Type 2 diabetes mellitus Current Visit: Yes Status: Chronic Assessment and plan: Continue sliding scale insulin, Accu-Cheks before meals at bedtime, diabetic diet. Qualifiers: Diabetes mellitus mcfp insulin use: unspecified mcfp insulin use status Diabetes mellitus complication status: without complication Qualified Code(s): E11.9 - Type 2 diabetes mellitus without complications (4) COPD (chronic obstructive pulmonary disease) Current Visit: Yes Status: Chronic Assessment and plan: Plan as above. If lactic WNL, will stop antibiotics, pt has viral infection, as well. Qualifiers: COPD type: unspecified COPD Qualified Code(s): J44.9 - Chronic obstructive pulmonary disease, unspecified (5) Former heavy cigarette smoker (20-39 per day) Current Visit: Yes Status: Chronic (6) SIRS (systemic inflammatory response syndrome) Current Visit: Yes Status: Acute Assessment and plan: Patient does not appear to be septic at this point. on admission patient had tachypnea and leukocytosis, currently, only leukocytosis remains. Lactic acid elevated this a.m. Procalcitonin ordered and results pending. Repeat lactic ordered and pending. Pt receiving IV antibiotics, IVF. Vitals are stable, pt is afebrile. Leukocytosis remains, suspect due to steroids which are being tapered. Monitor overnight. (7) History of GI bleed Current Visit: Yes Status: Resolved Assessment and plan: Pt states that she is unaware of GI Bleed in the past. (8) Hypertension Current Visit: Yes Status: Chronic Assessment and plan: Well controlled. Continue current medications. Qualifiers: Hypertension type: essential hypertension Qualified Code(s): I10 - Essential (primary) hypertension (9) DVT prophylaxis Current Visit: Yes Status: Acute Assessment and plan: SCDs, no pharmacologic intervention due to prior GIB. - Time Spent With Patient Total time spent is greater than 50% in coordination of care (as documented) at patient's floor/unit and/or counseling patient: less than 15 minutes - Subjective Interval history: Pt was seen and assessed at bedside at 0915. She was alert and awake, answers questions appropriately. She states that she is feeling somewhat better and is concerned about going home with an elevated WBC count. She denies headache, blurred vision, nausea, vomiting, abdominal pain, chest pain. Denies productive cough, fever, or chills. - Constitutional Vitals: Temp Pulse Resp BP Pulse Ox 98.2 F 86 16 123/65 98 02/25/18 15:26 02/25/18 15:26 02/25/18 16:07 02/25/18 15:26 02/25/18 16:07 General appearance: Present: cooperative, A&O X 3, pleasant, no acute distress, answers questions appropriately - Head Head exam: Present: atraumatic, normal inspection, normocephalic - Eye Eye exam: Present: normal appearance, conjuntiva pink, sclera anicteric - Neck Neck exam general surgery: Present: normal inspection, supple, trachea midline. Absent: lymphadenopathy, tenderness - Respiratory Respiratory exam: Present: CTAB, wheezes. Absent: accessory muscle use, chest wall tenderness, decreased breath sounds, rales, rhonchi - Cardiovascular Cardiovascular exam: Present: RRR, +S1, +S2. Absent: diastolic murmur, gallop, rubs, systolic murmur, tachycardia - GI/Abdominal GI/Abdominal exam: Present: soft. Absent: distended, hepatomegaly, tenderness - Extremities Exam Extremities exam: Present: normal capillary refill, normal inspection, warm, radial pulses palpable and symmetrical. Absent: calf tenderness, cyanotic, pedal edema, tenderness - Neurological Exam Neurological exam: Present: alert, oriented X3, no focal deficits, strengths equal and symetr throughout. Absent: facial droop, speech deficit - Skin Skin exam: Present: dry, intact, normal color, warm. Absent: rash Internal Medicine: Result - Labs CBC & Chem 7: 02/25/18 04:56 02/25/18 04:56 Labs: Short CBC 02/25/18 Range/Units 04:56 WBC 16.2 H (4.3-11.1) K/mcL Hgb 14.1 (11.5-15.4) g/dL Hct 43.3 (35.3-44.9) % Plt Count 303 (140-400) K/mcL Neutrophils # 14.6 H (1.6-8.9) K/mcL BMP 02/25/18 04:56 Sodium 140 Potassium 4.2 Chloride 102 Carbon Dioxide 31 H BUN 14 Creatinine 0.69 Glucose 183 H Calcium 9.2 Consult Discharge Plan - Plan Referrals: Husam Barrientos MD [Primary Care Provider] -
[2018-02-25] MEDS: Cefdinir 300 MG CAPSULE PO SCH (21:37)
[2018-02-25] MEDS: Insulin DETEMIR 100 UNIT/ML X5UNITS SQ SCH (21:40)
[2018-02-26] MEDS: *HR* Heparin 5,000 UNIT/ML VIAL SQ SCH ×3 (01:13→17:50)
[2018-02-26] MEDS: Ipratropium/Albuterol Neb 3 ML IH SCH ×6 (03:29→23:47)
[2018-02-26 06:46] LABS: Basophils % 0.3 %; Eosinophils % 0.2 %; Hemoglobin 13.7 g/dL (11.5-15.4); Immature Granulocytes % 1.4 % (0-4); Lymphocytes # 1.9 K/mcL (0.6-4.6); Lymphocytes % 14.6 %; Mean Corpuscular HGB Conc 32.6 g/dL (31.6-35.5); Mean Corpuscular Hemoglobin 30.3 pg (28.0-33.3); Mean Corpuscular Volume 92.9 fL (83.0-100.0); Monocytes # 1.1 K/mcL (0.0-1.3); Monocytes % 8.3 %; Neutrophils # 9.7 K/mcL (1.6-8.9); Platelet Count 301 K/mcL (140-400); Red Blood Count 4.52 M/mcL (3.82-4.97); Red Cell Distribution Width 12.6 % (11.5-14.5); Segmented Neutrophils % 75.2 %
[2018-02-26 08:01] LABS: BUN/Creatinine Ratio 22 (6-26); Blood Urea Nitrogen 16 mg/dL (8-23); Calcium 9.4 mg/dL (8.6-10.3); Carbon Dioxide 35 mEq/L (23-29); Chloride 100 mEq/L (98-107); Glucose 92 mg/dL (70-105); Osmolality,Calculated 293 (280-300); Potassium 3.9 mEq/L (3.5-5.1); Sodium 141 mEq/L (136-145); eGFR For African Americans > 60 (> 60); eGFR For Non-African Americans > 60 (> 60)
[2018-02-26] MEDS: Cefdinir 300 MG CAPSULE PO SCH ×2 (08:41→21:03)
[2018-02-26] MEDS: predniSONE 20 MG TABLET PO SCH (08:42)
[2018-02-26] MEDS: Insulin LISPRO 300 UNITS/3 ML VIAL SQ SCH ×4 (08:42→21:04)
[2018-02-26] MEDS ORDERED: Fluconazole 100 MG TABLET PO ONE (12:27)
--- NOTE | 2018-02-26 16:13 | Internal Med Progress Note ---
Date of Encounter: 02/26/18 Time of Encounter: 11:15 - Assessment and plan (1) Acute exacerbation of chronic obstructive airways disease Current Visit: Yes Status: Acute Assessment and plan: Suspect viral URI is cause of exacerbation. Respiratory infectious panel positive for anterior/rhinovirus. Patient with leukocytosis that is improving, IV antibiotics have been stopped, Omnicef 300mg po BID. lactic 2.8 Solu medrol IV, deescalating dose in the morning to Prednisone. 02 as needed to maintain sats > 92%. Walk pt to qualify for 02 if needed. Continue bronchodilators. (2) Acute respiratory failure with hypoxia Current Visit: Yes Status: Acute Assessment and plan: Patient requiring supplemental oxygen, does not have oxygen at home. Wean if tolerated Will do walk test for 02 qualification, pt states that she had home 02 " a couple of years ago" for same. O2 as needed to maintain sats greater than 92%. (3) Type 2 diabetes mellitus Current Visit: Yes Status: Chronic Assessment and plan: Continue sliding scale insulin, Accu-Cheks before meals at bedtime, diabetic diet. Pt hyperglycemic at times, likely due to steroids. 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 Pt has viral infection. Will stop antibiotics in the morning after IV doses completed. Pt states that she is feeling better but has requested another night due to productive cough and leukocytosis. Walk pt to see if she qualifies for home 02. Continue home medications. Qualifiers: COPD type: unspecified COPD Qualified Code(s): J44.9 - Chronic obstructive pulmonary disease, unspecified (5) Former heavy cigarette smoker (20-39 per day) Current Visit: Yes Status: Chronic (6) SIRS (systemic inflammatory response syndrome) Current Visit: Yes Status: Acute Assessment and plan: Patient does not appear to be septic at this point. She is non-toxic appearing and stable. on admission patient had tachypnea and leukocytosis, currently, only leukocytosis remains. Lactic acid 2.8 Pt receiving IV antibiotics, IVF. Vitals are stable, pt is afebrile. Leukocytosis remains, suspect due to steroids which are being tapered. Monitor overnight. (7) Hypertension Current Visit: Yes Status: Chronic Assessment and plan: Stable. Chronic. Continue home medications. Qualifiers: Hypertension type: essential hypertension Qualified Code(s): I10 - Essential (primary) hypertension (8) DVT prophylaxis Current Visit: Yes Status: Acute Assessment and plan: SCDs, no pharmacologic intervention due to prior retroperitoneal bleed. - Time Spent With Patient Total time spent is greater than 50% in coordination of care (as documented) at patient's floor/unit and/or counseling patient: less than 15 minutes - Subjective Interval history: Pt was seen and assessed at bedside at 1115. She was alert and awake, answers questions appropriately. She states that she is feeling somewhat better and is concerned about going home with an elevated WBC count, as well as she has requested another night since she has a productive cough. She denies headache, blurred vision, nausea, vomiting, abdominal pain, chest pain, fever, or chills. She is agreeable to be discharged tomorrow. - Constitutional Vitals: Temp Pulse Resp BP Pulse Ox 97.8 F 71 16 130/66 92 02/26/18 15:32 02/26/18 15:32 02/26/18 15:32 02/26/18 15:32 02/26/18 15:32 General appearance: Present: cooperative, A&O X 3, pleasant, no acute distress, answers questions appropriately - Head Head exam: Present: atraumatic, normal inspection, normocephalic - Eye Eye exam: Present: normal appearance, conjuntiva pink, sclera anicteric - Neck Neck exam general surgery: Present: supple, trachea midline. Absent: lymphadenopathy, tenderness - Respiratory Respiratory exam: Present: CTAB, wheezes. Absent: accessory muscle use, chest wall tenderness, decreased breath sounds, rales, respiratory distress, rhonchi - Cardiovascular Cardiovascular exam: Present: RRR, +S1, +S2. Absent: diastolic murmur, gallop, rubs, systolic murmur - GI/Abdominal GI/Abdominal exam: Present: normal bowel sounds, soft. Absent: distended, hepatomegaly, tenderness - Extremities Exam Extremities exam: Present: normal capillary refill, normal inspection, warm. Absent: calf tenderness, cyanotic, pedal edema, tenderness - Neurological Exam Neurological exam: Present: alert, oriented X3, no focal deficits. Absent: facial droop, speech deficit - Skin Skin exam: Present: dry, intact, normal color, warm. Absent: rash Internal Medicine: Result - Labs CBC & Chem 7: 02/26/18 06:12 02/26/18 07:31 Labs: Short CBC 02/26/18 Range/Units 06:12 WBC 12.9 H (4.3-11.1) K/mcL Hgb 13.7 (11.5-15.4) g/dL Hct 42.0 (35.3-44.9) % Plt Count 301 (140-400) K/mcL Neutrophils # 9.7 H (1.6-8.9) K/mcL BMP 02/26/18 07:31 Sodium 141 Potassium 3.9 Chloride 100 Carbon Dioxide 35 H BUN 16 Creatinine 0.73 Glucose 92 Calcium 9.4 Consult Discharge Plan - Plan Referrals: Husam Barrientos MD [Primary Care Provider] -
[2018-02-26] MEDS: 0.9 % Sodium Chloride 1,000 ML IVC SCH (18:06)
[2018-02-26] MEDS: Insulin DETEMIR 100 UNIT/ML X5UNITS SQ SCH (21:03)
[2018-02-27] MEDS: *HR* Heparin 5,000 UNIT/ML VIAL SQ SCH ×3 (00:11→17:05)
[2018-02-27] MEDS: Ipratropium/Albuterol Neb 3 ML IH SCH ×6 (03:42→23:58)
[2018-02-27] MEDS: Insulin LISPRO 300 UNITS/3 ML VIAL SQ SCH ×5 (07:32→21:37)
[2018-02-27] MEDS: 0.9 % Sodium Chloride 1,000 ML IVC SCH ×3 (07:32→21:37)
[2018-02-27 07:39] LABS: Basophils % 0.3 %; Eosinophils # 0.1 K/mcL (0.0-0.6); Eosinophils % 0.5 %; Hematocrit 43.3 % (35.3-44.9); Hemoglobin 14.2 g/dL (11.5-15.4); Immature Granulocytes % 1.4 % (0-4); Lymphocytes % 18.3 %; Mean Corpuscular HGB Conc 32.8 g/dL (31.6-35.5); Mean Corpuscular Hemoglobin 30.3 pg (28.0-33.3); Mean Corpuscular Volume 92.3 fL (83.0-100.0); Mean Platelet Volume 10.1 fL (9.4-12.4); Monocytes # 0.9 K/mcL (0.0-1.3); Monocytes % 8.2 %; Neutrophils # 7.9 K/mcL (1.6-8.9); Platelet Count 295 K/mcL (140-400); Red Blood Count 4.69 M/mcL (3.82-4.97); Red Cell Distribution Width 12.7 % (11.5-14.5); Segmented Neutrophils % 71.3 %
[2018-02-27] MEDS: predniSONE 20 MG TABLET PO SCH (07:41)
[2018-02-27] MEDS: Cefdinir 300 MG CAPSULE PO SCH (07:41)
[2018-02-27 08:02] LABS: BUN/Creatinine Ratio 16 (6-26); Blood Urea Nitrogen 12 mg/dL (8-23); Calcium 9.5 mg/dL (8.6-10.3); Carbon Dioxide 35 mEq/L (23-29); Chloride 97 mEq/L (98-107); Glucose 90 mg/dL (70-105); Osmolality,Calculated 289 (280-300); Potassium 4.3 mEq/L (3.5-5.1); Sodium 140 mEq/L (136-145); eGFR For African Americans > 60 (> 60); eGFR For Non-African Americans > 60 (> 60)
[2018-02-27 14:47] LABS: Mycoplasma pneumoniae IgG 0.39 U/L (<=0.09)
--- NOTE | 2018-02-27 19:36 | Discharge Summary ---
- NOTES TO OUTPATIENT PROVIDER Notes to Outpatient Provider: Monitor blood glucose closely while on steroids. Date of Encounter: 02/27/18 Time of Encounter: 11:45 - Discharge Diagnosis (1) Acute exacerbation of chronic obstructive airways disease Priority: Primary Status: Acute Assessment and Plan: Suspect viral URI is cause of exacerbation. Respiratory infectious panel positive for anterior/rhinovirus. Leukocytosis has resolved. Antibiotics have been discontinued. Prednisone taper, 40mg po daily 02 as needed to maintain sats > 92%. Pt qualified for home 02. Continue bronchodilators at home. (2) Acute respiratory failure with hypoxia Priority: Secondary Status: Acute Assessment and Plan: Patient requiring supplemental oxygen, does not have oxygen at home. Pt qualified for home 02. O2 as needed to maintain sats greater than 92%. (3) Type 2 diabetes mellitus Priority: Secondary Status: Chronic Assessment and Plan: Continue sliding scale insulin, Accu-Cheks before meals at bedtime, diabetic diet. Pt hyperglycemic at times, likely due to steroids. Pt not discharged today due to hyperglycemia, accucheck 104 tonight, but 02 not delivered to home. Qualifiers: Diabetes mellitus long-term insulin use: unspecified long term care pharmacist insulin use status Diabetes mellitus complication status: without complication Qualified Code(s): E11.9 - Type 2 diabetes mellitus without complications (4) COPD (chronic obstructive pulmonary disease) Priority: Secondary Status: Chronic Assessment and Plan: Plan as above. Pt has viral infection. Pt states that she is feeling better Qualified for home 02. Plan as above. Continue home medications. Qualifiers: COPD type: unspecified COPD Qualified Code(s): J44.9 - Chronic obstructive pulmonary disease, unspecified (5) Former heavy cigarette smoker (20-39 per day) Priority: Secondary Status: Chronic (6) SIRS (systemic inflammatory response syndrome) Priority: Secondary Status: Resolved (7) Hypertension Priority: Secondary Status: Chronic Assessment and Plan: Stable. Chronic. Continue home medications. Qualifiers: Hypertension type: essential hypertension Qualified Code(s): I10 - Essential (primary) hypertension (8) DVT prophylaxis Priority: Secondary Status: Acute Assessment and Plan: SCDs ordered, no pharmacologic intervention due to prior retroperitoneal bleed. Pt is ambulatory. Hospital course: Ms. Faustin is a 72 year old female with past medical history of type 2 diabetes, COPD, history of GI bleed, hypertension. Pt admitted for acute exacerbation of COPD. She qualified for home 02 and will be sent home with nebulizer and duonebs, steroid taper. Pt with hyperglycemia and stayed an extra night for IVF and insulin. She has improved and is stable for discharge. Discharge discussed with: patient - Time Spent with Patient Total time spent providing and/or coordinating discharge services: Less than 30 minutes - Discharge Medications Prescriptions: predniSONE [PredniSONE] 40 mg PO DAILY #23 tablet Home Medications: Albuterol Sulfate [Albuterol Inhaler] 2 puff IH Q4-6H PRN 02/23/18 [History] Colesevelam [Welchol] 1,875 mg PO DAILY 02/23/18 [History] Glimepiride [Amaryl] 4 mg PO BID 02/23/18 [History] Losartan Potassium [Cozaar] 50 mg PO DAILY 02/23/18 [History] Metformin HCl [Glucophage] 1,000 mg PO BID 02/23/18 [History] predniSONE [PredniSONE] 40 mg PO DAILY #23 tablet 02/27/18 [Rx] Allergies/Adverse Reactions: 3 Allergy/AdvReac Type Severity Reaction Status Date / Time No Known Allergies Allergy Verified 02/23/18 10:50 Date of admission: 02/24/18 14:09 Primary care physician: Husam Barrientos MD Consults: 02/26/18 18:30 Consult to Manager [place] [CONS] Routine Reason for SW Consult: patient qualified for home o2 Discharging clinician: Edyta Solano Anticipated date of discharge: 02/27/18 - Constitutional Vitals: Temp Pulse Resp BP Pulse Ox 97.8 F 65 15 137/58 94 02/27/18 16:23 02/27/18 16:23 02/27/18 16:23 02/27/18 16:23 02/27/18 16:23 General appearance: Present: cooperative, A&O X 3, pleasant, no acute distress, answers questions appropriately - Head Head exam: Present: atraumatic, normal inspection, normocephalic - Eye Eye exam: Present: normal appearance, conjuntiva pink, sclera anicteric - Neck Neck exam general surgery: Present: supple, trachea midline. Absent: lymphadenopathy - Respiratory Respiratory exam: Present: decreased breath sounds, CTAB. Absent: accessory muscle use, chest wall tenderness, rales, respiratory distress, rhonchi, wheezes - Cardiovascular Cardiovascular exam: Present: RRR, +S1, +S2. Absent: diastolic murmur, gallop, rubs, systolic murmur - GI/Abdominal GI/Abdominal exam: Present: normal bowel sounds, soft. Absent: distended, hepatomegaly, tenderness - Extremities Exam Extremities exam: Present: normal capillary refill, normal inspection, warm, radial pulses palpable and symmetrical. Absent: calf tenderness, cyanotic, pedal edema, tenderness - Neurological Exam Neurological exam: Present: alert, oriented X3, no focal deficits. Absent: facial droop, speech deficit - Skin Skin exam: Present: dry, intact, normal color, warm. Absent: rash - Patient Status Disposition: Home, Self-Care Condition: Good Functional capacity at discharge: uses cane/walker Overall status at discharge: patient is progressing back to baseline - Discharge Instructions Follow Up With: Husam Barrientos MD [Primary Care Provider] - 03/06/18 1:00 pm Additional Instructions: Please follow up with your PCP in the next 3-5 days for a recheck. Take your medications as directed Check your blood sugar frequently Return to your normal medications, activities, and make sure that you are following a diabetic diet. - Diet and Activity Activity: increase activity as tolerated, wear oxygen at all times Diet: diabetic diet
[2018-02-27] MEDS ORDERED: Insulin DETEMIR 100 UNIT/ML X5UNITS SQ SCH (21:00)
[2018-02-28] MEDS: *HR* Heparin 5,000 UNIT/ML VIAL SQ SCH ×2 (00:19→08:29)
[2018-02-28] MEDS: Ipratropium/Albuterol Neb 3 ML IH SCH ×3 (03:53→11:37)
[2018-02-28] MEDS: predniSONE 20 MG TABLET PO SCH (08:30)
[2018-02-28] MEDS: Insulin LISPRO 300 UNITS/3 ML VIAL SQ SCH ×2 (08:31→12:24)
[2018-02-28 10:50] VITALS: BP 129/60
--- NOTE | 2018-02-28 15:14 | Event Note ---
Date of Encounter: 02/28/18 Time of Encounter: 15:08 Patient discharged yesterday. Admitted with COPD exacerbation which has resolved. She remained overnight d/t concerns for hyperglycemia. She continues to be hyperglycemic today but this is d/t to oral steroids. Continues to be stable from a respiratory perspective. Okay to d/c home.
== END 2018-02-28 16:09 | disposition home or self-care (01) | DRG 190 ==
LOC: 3BNU 10:48 → EMEROO 10:48 → 3BNU 14:13
PROVIDERS: ADMIT Student in an Organized Health Care Education/Training Program; ATTEND Student in an Organized Health Care Education/Training Program